=== PATIENT | male | born 1950 | race Caucasian/White ===

== ENCOUNTER → 2018-12-16 15:43 | Outpatient (CLI) | payer MEDICARE | END | disposition home or self-care (01) | LOC: D.RAD 15:43 | DX: R06.02 Shortness of breath (principal) ==

== ENCOUNTER → 2021-03-24 08:06 | Outpatient (CLI) | payer MEDICARE ==
[2020-12-08 20:48] VITALS: BMI 26.5
[~2021-03-24 08:06] MED LIST: STOMACH MEDICATION; ULTRAM50 MG PO
== END | disposition home or self-care (01) ==
LOC: D.CT 08:06
PROVIDERS: ATTEND Thoracic Surgery (Cardiothoracic Vascular Surgery)
DX: C34.90 Malignant neoplasm of unspecified part of unspecified bronchus or lung (principal)

== ENCOUNTER → 2021-03-29 09:40 | Outpatient (CLI) | payer MEDICARE ==
[2020-12-08 20:48] VITALS: BMI 26.5
== END | disposition home or self-care (01) ==
LOC: D.LAB 09:40
PROVIDERS: ATTEND Thoracic Surgery (Cardiothoracic Vascular Surgery)
DX: C34.90 Malignant neoplasm of unspecified part of unspecified bronchus or lung (principal); Z11.52 Encounter for screening for COVID-19

== ENCOUNTER → 2021-03-30 15:18 | Outpatient (CLI) | payer MEDICARE ==
[2020-12-08 20:48] VITALS: BMI 26.5
[2021-03-30 16:07] LABS: SARS-CoV-2 ANTIGEN NEGATIVE- SARS-COV-2 (NEGATIVE)
== END | disposition home or self-care (01) ==
LOC: D.LAB 15:18
PROVIDERS: ATTEND Thoracic Surgery (Cardiothoracic Vascular Surgery)
DX: C34.90 Malignant neoplasm of unspecified part of unspecified bronchus or lung (principal); Z11.52 Encounter for screening for COVID-19

== ENCOUNTER → 2021-03-30 15:23 | Outpatient (CLI) | payer MEDICARE ==
[2020-12-08 20:48] VITALS: BMI 26.5
== END | disposition home or self-care (01) ==
LOC: D.RT 15:00
PROVIDERS: ATTEND Thoracic Surgery (Cardiothoracic Vascular Surgery)
DX: I20.9 Angina pectoris, unspecified (principal)

== ENCOUNTER → 2021-04-01 08:06 | Outpatient (CLI) | payer MEDICARE ==
[2020-12-08 20:48] VITALS: BMI 26.5
--- NOTE | 2021-04-04 08:00 | ST ---
PATIENT:IGGY BLAKE MEDICAL RECORD: [id number] SEX: M LOCATION:[facility] ORDER #: ADMISSION DATE: 04/01/21 AGE OF PATIENT: 71 REFERRING PHYSICIAN: INTERPRETING PHYSICIAN: ANGELIQUE ROBIN MD DATE OF SERVICE: 04/01/2021 Gated: Normal. Normal wall motion. Normal wall thickening. Calculated EF 61%. SPECT imaging: SPECT imaging was performed. FINDINGS: Short axis view: Shows a reversible defect along the mid inferior wall down to the inferior apex, this is confirmed on horizontal axis with reversible defect from the mid inferior wall down to the inferior apex. Vertical axis: Vertical axis shows apical defect. FINAL IMPRESSION: 1. Normal gated, normal wall motion, EF 61%. 2. Abnormal SPECT imaging with reversible defect seen in multiple views. FINAL IMPRESSION: This gentleman with multiple risk factors, ongoing ischemic symptomatology, scan is suspicious for underlying coronary artery disease and ongoing ischemia, would consider diagnostic angiography if clinically indicated. TRANSINT:[id number] Voice Confirmation ID: [id number] DOCUMENT ID: [id number] ANGELIQUE ROBIN MD at 0800 CC: [id number] DICTATION DATE: 04/02/21 0953 SHOP HELPER: 04/03/21 0406 DEP CLI 04/01/21 [place] [id number] [place] [address]
--- NOTE | 2021-04-04 08:00 | EC ---
PATIENT:IGGY BLAKE DATE OF SERVICE: 04/01/21 SEX: M MEDICAL RECORD: [id number] DATE OF : [birth year] LOCATION:[facility] AGE OF PATIENT: 71 ADMISSION DATE: 04/01/21 REFERRING PHYSICIAN: INTERPRETING PHYSICIAN: ANGELIQUE ROBIN MD ECHOCARDIOGRAM REPORT ECHO CHARGES 4 ECHO COMPLETE Date: 04/01/21 CLINICAL DIAGNOSIS: ANGINA/HEART MURMUR ECHOCARDIOGRAPHIC MEASUREMENTS (adult normal given) AC root (d.<3.7cm) 3.9 cm LV Septum d (<1.2 cm> 1.5 cm Valve Excursion 1.5 cm LV Septum (systole) 1.8 cm Left Atria (s.<4.0cm> 3.3 cm LVPW d(<1.2cm) 1.5 cm RV (d.<2.3cm) 3.5 cm LVPW (sytole) 1.8 cm LV diastole(<5.6CM) 4.8 cm MV E-F(>70mm/sec) cm LV systole 2.8 cm LVOT Diameter 1.9 cm MV exc.(>10mm) 1.7 cm Est.ejection fraction (50-75%) % DOPPLER: LVIT cm/sec A 83.0 cm/sec E 67.0 cm/sec LA cm/sec RVSP 20 mmHg LVOT 100 cm/sec AOP1/2T m/s Asc. Ao 206 cm/sec RVOT 75 cm/sec RA cm/sec PA 86 cm/sec AV Gradient Peak 16.91mmHg AV Mean 8.88 mmHg AV Area 1.4 cm MV Gradient Peak 2.66 mmHg MV Mean 0.91 mmHg MV Area cm COMMENTS: Telecom Sales Consultant: 2 IESHA RODRIGUEZ Advertising Writer: 3 Dr. Hoff TAPE# PACS Pericardial Effusion N DATE OF SERVICE: Adequate 2D, color-flow imaging, spectral Doppler, and M-Mode FINDINGS: LVH is present. LV internal dimensions are normal. Wall motion is normal. EF is greater than or equal to 55%. Aortic valve is sclerotic with minimal restriction of leaflet motion. Peak gradient of 60 mmHg, putting this in a very mild range. There is trace AI by color flow imaging as well. Left atrium is normal at 3.3 cm. Mitral valve shows no prolapse. Trace MR. Right side is grossly normal. Trace TR. ECHOCARDIOGRAM REPORT [id number] IGGY BLAKE TRANSINT:[id number] Voice Confirmation ID: [id number] DOCUMENT ID: [id number] ANGELIQUE ROBIN MD at 0800 CC: [id number] DICTATION DATE: 04/02/21 1000 MAINTENANCE SUPERVISOR ELECTRICAL: 04/02/21 1322 DEP CLI 04/01/21 [place] [id number] [place] [id number]
== END | disposition home or self-care (01) ==
LOC: D.HCCECHO 08:06
PROVIDERS: ATTEND Internal Medicine Interventional Cardiology
DX: I20.9 Angina pectoris, unspecified (principal)

== ENCOUNTER 2021-04-14 11:13 | Inpatient (IN) | payer MEDICARE ==
[2021-04-14] VITALS (8 sets, daily range): BP systolic 85–133; BP diastolic 30–69; BMI 29.6; BMI 29.2
[~2021-04-14] VITALS: Ht 172.7 cm; Wt 83.1 kg
--- NOTE | ~2021-04-14 | HEMODYNAMI ---
PATIENT:IGGY BLAKE MEDICAL RECORD: [id number] : 46 [address] [id number] ADMISSION DATE: 04/14/21 Generatedon:19:14 Patient name: IGGY BLAKE Patient #: [id number] SSN: [id number] : 1950 Date of study: 04/14/2021 Page: Of Hemodynamic Procedure Report Patient Data Patient Demographics Procedure consent was obtained First Name: IGGY Gender: Male Last Name: HAYDEN : 1950 [facility] Initial: L Age: 71 year(s) Patient #: [id number] Race: SSN: [id number] Past Medical History Allergies: No known allergies Admission Admission Data Admission Date: 04/14/2021 Admission Time: 0:00 Arrival Date: 04/14/2021 Arrival Time: 0:00 Admit Source: Other Insurance Payor: Medicare Room #: D.CV04 [facility] #: [id number] Height (in.): 71 BSA: 2.1 (m2) Height (cm.): 180.34 BMI: 27.62 (kg/m2) Weight (lbs.): 198 Weight (kg.): 89.81 Lab Results Lab Result Date: 04/14/2021 Lab Result Time: 0:00 Biochemistry Name Units Result Min Max BUN mg/dl 18 --(---*)-- 7 18 Creatinine mg/dl 1.2 --(---*)-- 0.6 1.3 eGFR ml/min 63 *-(----)-- 90 120 NONAFRICAN CBC Name Units Result Min Max Hematocrit % 34.2 *-(----)-- 42 54 Hemoglobin g/dl 11.7 *-(----)-- 13.5 17.5 Procedure Procedure Types Cath Procedure Diagnostic Procedure [facility] w/Coronaries FFR/IVUS FFR Initial FFR Additional Sedation Charges Moderate Sedation 10-24 minutes PCI Procedure Hemochron ACT Test Procedure Description Procedure Date Procedure Date: 04/14/2021 Procedure Start Time: 13:15 Procedure End Time: 13:34 Procedure Staff Name Function Rafaela Wells RT Scrub Anna Fong RN Nurse Rory James MD Performing Physician Alice Chand RT Monitor Gilbert Lea RN Nurse Nusrat Mccarty RT Monitor Procedure Data Cath Procedure Fluoroscopy Diagnostic fluoroscopy Total fluoroscopy Time: 3.8 time: 3.8 min min Diagnostic fluoroscopy Total fluoroscopy dose: 600 dose: 600 mGy mGy Contrast Material Contrast Material Type Amount (ml) Isovue 370 75 Entry Location Entry Primary Successful Side Size Upsize Upsize Entry Closure Succes sful Closure Location (Fr) 1 (Fr) 2 (Fr) Remarks Device Remarks Femoral Right 5 Fr 6 Fr Exoseal artery Short Estimated blood loss: 10 ml Diagnostic catheters Device Type Used For End Catheter Placement MULTIPACK JL 4.0 5Fr Procedure catheter MULTIPACK 3DRC 5Fr Procedure catheter MULTIPACK Pigtail 5 Fr Procedure catheter Procedure Complications No complications Procedure Medications Medication Administration Route Dosage Oxygen etCO2 Nasal cannula 2 l/min Lidocaine 2% added to field 20 Heparin Flush Bag added to field 2 bags (1000units/500ml NS) 0.9% NaCl I.V. 100 ml/hr Versed I.V. 1 mg Fentanyl I.V. 50 mcg Versed I.V. 0.5 mg Fentanyl I.V. 25 mcg Heparin Bolus I.V. 2000 units Hemodynamics Rest BSA: 2.1 (m2) HGB: 11.7 (g/dl) O2 Consumption: Estimated: 224.42 (ml/min) O2 Con sumption indexed: Estimated:106.87 (ml/min/m) Heart Rate: 48 (bpm) Pressure Samples Time Site Value (mmHg) Purpose Heart Use Rate(bpm) 13:20 LV 161/69,4 Snapshot 86 Gradients Valve Time Site Site Mean SEP/DFP Peak To Heart Use 1 2 (mmHg) (sec/min) Peak Rate (mmHg) (bpm) Aortic 13:21 LV AO 70 Snapshots Pre Cath Intra NCS Post Cath Vital Signs Time Heart Resp SPO2 etCO2 NIBP Rhythm Pain Sedation Rate (ipm) (%) (mmHg) (mmHg) Status Level (bpm) 13:06:36 49 15 99 8.2 105/66(77) NSR 0 (11) 10(A) , No pain 13:10:40 50 13 98 35.2 100/63(81) NSR 0 (11) 10(A) , No pain 13:14:43 51 14 98 29.2 118/62(83) NSR 0 (11) 10(A) , No pain 13:18:53 63 12 96 0 103/61(80) NSR 0 (11) 10(A) , No pain 13:22:57 60 12 96 33 105/63(75) NSR 0 (11) 9(A) , No pain 13:27:03 57 10 98 23.2 110/60(74) NSR 0 (11) 10(A) , No pain 13:31:07 62 13 97 28.5 110/71(94) NSR 0 (11) 10(A) , No pain Medications Time Medication Route Dose Verified Delivered Reason Notes Effectiveness by by 13:00:33 Oxygen etCO2 2 Rory Gilbert used for Nasal l/min St Orlin Lea RN procedure cannula 13:00:41 Lidocaine 2% added 20ml Rory Valadez for local to vial [facility] anesthetic field MD HARRIS 13:00:49 Heparin Flush added 2 Rory Rory used for Bag to bags [facility] procedure (1000units/500ml field MD HARRIS NS) 13:00:58 0.9% NaCl I.V. 100 Rory Moorey Per physician ml/hr St Orlin Lea RN, MD 13:15:05 Versed I.V. 1 mg Rory Hunt for sedation St Orlin Lea RN, MD 13:15:13 Fentanyl I.V. 50 Rory Moorey for sedation mcg St Orlni Lea RN, MD 13:20:19 Versed I.V. 0.5 Rory Moorey for sedation mg St Orlin Lea RN, MD 13:20:24 Fentanyl I.V. 25 Rory Moorey for sedation mcg St Orlin Lea RN, MD 13:22:44 Heparin Bolus I.V. 2000 Rory Hunt for units St Orlin lechuga MD Procedure Log Time Note 12:27:19 Informed consent obtained and on chart 12:27:40 Arrival Date: 04/14/2021 12:00:00 AM 12:27:41 Admission Date : 04/14/2021 12:00:00 AM 12:27:42 Admit Source: Other 12:27:55 Insurance Payor : Medicare 12:29:42 Patient Height : 71 inches 12:29:45 Patient Weight : 198 lbs 12:31:50 ACC Patient presents with Stable Angina CCS Anginal Class 2--Slight limitation of ordinary activity. 12:31:52 Procedure Status Elective Heart Cath (OP). 12::54 Time tracking: Regular hours (M-F 7:00 - 5:00) 12:31:59 Plan of Care:Hemodynamics will remain stable., Cardiac rhythm will remain stable., Comfort level will be maintained., Respiratory function will remain adequate., Patient/ family verbilizes understanding of procedure., Procedure tolerated without complication., Recovers from procedure without complications.. 12:32:07 H&P Date Dictated: 03/22/2021 Within 30 days and on chart.. 12:32:10 Family in waiting room. 12:32:12 Patient NPO since Midnight. 12:32:19 Patient allergic to No known allergies 12:32:28 Lab results pending. 12:33:33 Stress Test: yes; abnormal INFERIOR 12:33:36 Sharps counted by scrub and verified by R.N. 12:33:36 Alarms reviewed by R. N. 12:46:33 Anna Fong RN sent for patient. Start room use. 12:53:47 Lab results completed and on chart. 12:54:15 Lab Result : Hemoglobin 11.7 g/dl 12:54:15 Lab Result : Hematocrit 34.2 % 12:54:15 Lab Result : eGFR NONAFRICAN 63 ml/min 12:54:15 Lab Result : BUN 18 mg/dl 12:54:15 Lab Result : Creatinine 1.2 mg/dl 12:54:20 Risk of Mortality: 0.2 12:54:23 Risk of blood transfusion: 0.1 12:54:26 Risk of VIKTORIYA: 2.1 12:54:35 Patient received from Pre/Post Procedure Room to CCL 2 Alert and oriented. Tansferred to table in Supine position. 12:54:36 Warm blankets applied, and marion hugger turned on for patient comfort. 12:54:37 ECG and BP/O2 sat monitors applied to patient. 12:54:37 Correct patient and procedure confirmed by team. 12:54:38 Full Disclosure recording started 12:54:42 Pre-op teaching completed and patient verbalized understanding. 12:54:42 Pre-procedure instructions explained to patient. 12:54:44 Is the patient allergic to Iodine/contrast media? No. 12:54:46 Was the patient premedicated? Yes 12:54:48 Is patient on blood thinner?No 12:54:49 Patient diabetic? No. 12:54:51 If diabetic: On Metformin? No 12:54:55 ----Pre-sedation anethsthesia assessment.---- 12:54:58 Previous problem with sedation/anesthesia? No ? 12:54:59 Snore? Yes 13:00:33 Oxygen 2 l/min etCO2 Nasal cannula was administered by Gilbert Lea RN; used for procedure; Verbal order read back and verified. 13:00:41 Lidocaine 2% 20ml vial added to field was administered by Rory James MD; for local anesthetic; Verbal order read back and verified. 13:00:49 Heparin Flush Bag (1000units/500ml NS) 2 bags added to field was administered by Royr Jmaes MD; used for procedure; Verbal order read back and verified. 13:00:58 0.9% NaCl 100 ml/hr I.V. was administered by Gilbert Lea RN; Per physician; Verbal order read back and verified. 13:04:25 Sleep apnea? No 13:04:26 Deviated septum? No 13:04:32 Opens mouth fully? Yes 13:04:34 Sticks out tongue? Yes 13:04:42 Airway obstruction? Yes LUNG CANCER 13:05:06 Dentures? No ? 13:05:09 Pre procedure: right dorsailis pedis pulse 1+ Palpable, but thready & weak; easily obliterated 13:05:12 Modified Raj's test Ulnar < 7 seconds 13:05:15 Patient pain scale 0/10 ?. 13:05:26 IV patent on arrival in left antecubital with 0.9% NaCl at [facility]. 13:05:31 Vital chart was started 13:05:33 Baseline sample Acquired. 13:05:39 Rhythm: sinus bradycardia 13:05:46 Use device set Femoral Dx 13:05:47 ACIST Syringe (09352) opened to sterile field. 13:05:48 Bag Decanter () opened to sterile field. 13:05:49 Medline Cath Pack ([id number]) opened to sterile field. 13:05:50 ACIST Manifold (94256) opened to sterile field. 13:05:50 ACIST Hand Control (86169) opened to sterile field. 13:05:51 DIAGNOSTIC Multipack 5Fr catheter set (CC1108) opened to sterile field. 13:05:52 SHEATH 5FR [place] (LGZ442) opened to sterile field. 13:05:53 EMERALD Guide Wire (809-793) opened to sterile field. 13:05:54 Tegaderm 4 x 4 (1626W) opened to sterile field. 13:06:13 Right groin area was prepped with chlora-prep and draped in sterile fashion 13:07:16 2) 60-89 Mildly reduced kidney function, and other findings (as for stage 1) point to kidney disease. 13:07:19 Maximum allowable contrast dose (3.7 X eGFR X 0.75)175 ml. 13:13:31 --------ALL STOP TIME OUT------ 13:13:32 Final Timeout: patient, procedure, and site verified with staff and physician. All members of the team are in agreement. 13:13:34 Right groin site verified by team. 13:13:37 Fire Safety Assessment: A--An alcohol-based skin anteseptic being used preoperatively., C--Open oxygen or nitrous oxide is being used., D--An ESU, laser, or fiber-optic light is being used. 13:13:41 Physical assessment completed. ASA score P 2 - A patient with mild systemic disease as per Rory James MD. 13:13:45 Sedation plan: IV Moderate Sedation Medication:Versed, Fentanyl 13:14:45 Procedure started. 13:15:05 Versed 1 mg I.V. was administered by Gilbert Lea RN; for sedation; Verbal order read back and verified. 13:15:09 Local anesthetic to right femoral artery with Lidocaine 2% by Rory James MD.INITIAL ACCESS ONLY 13:15:13 Fentanyl 50 mcg I.V. was administered by Gilbert Lea RN; for sedation; Verbal order read back and verified. 13:15:49 A 5 Fr sheath was inserted into the Right Femoral artery 13:16:52 A MULTIPACK JL 4.0 5Fr catheter was advanced over the wire and used for Procedure. 13:16:55 LCA angiography performed. 13:16:57 Injector settings: Ml/sec: 3, Volume: 6, 13:17:47 Catheter removed. 13:17:57 A MULTIPACK 3DRC 5Fr catheter was advanced over the wire and used for Procedure. 13:18:26 RCA angiography performed. 13:18:29 Injector settings: Ml/sec: 3, Volume: 6, 13:19:18 Catheter exchanged over wire. 13:19:22 A MULTIPACK Pigtail 5 Fr catheter was advanced over the wire and used for Procedure. 13:19:42 LV gram done using ASTUDILLO 13:20:19 Versed 0.5 mg I.V. was administered by Gilbert Lea RN; for sedation; Verbal order read back and verified. 13:20:24 Fentanyl 25 mcg I.V. was administered by Gilbert Lea RN; for sedation; Verbal order read back and verified. 13:20:39 Zero performed for pressure channel P1 13:20:56 LV hemodynamics recorded. 13:20:59 Injector settings: Ml/sec: 5, Volume: 15, 13:21:05 EF : 55 % 13:21:10 Catheter removed. 13:21:12 Proceeding to intervention. 13:21:17 Use device set SHARDA PCI 13:21:18 SHEATH 6FR [place] (TMJ369) opened to sterile field. 13:21:21 INFLATOR Merit BasixCompak (KO4642) opened to sterile field. 13:21:30 [place] OmniWire (14297) opened to sterile field. 13:21:49 Sheath upsized to a 6 Fr Short. 13:22:44 Heparin Bolus 2000 units I.V. was administered by Gilbert Lea RN; for anticoagulation; Verbal order read back and verified. 13:22:54 GUIDE 6FR XBLAD 3.5 catheter ([id number]) opened to sterile field. 13:23:02 6 Fr XBLAD 3.5 guide catheter was inserted over the wire 13:24:43 Pressure wire advanced. 13:26:21 Wire advanced across lesion. 13:26:59 Circ lesion measured at 1.03 with IFR 13:27:09 Wire redirected to LAD. 13:27:46 Wire advanced across lesion. 13:29:17 LAD lesion measured at .96 with IFR 13:29:28 Guide catheter removed. 13:29:28 Wire removed. 13:30:06 EXOSEAL 6Fr (EX600) opened to sterile field. 13:30:16 Sheath removed intact; hemostasis achieved with Exoseal to the Right Femoral artery. 13:30:18 Procedure ended.(Physican Out) 13:30:25 Fluoroscopy time 03.80 minutes. 13:30:29 Fluoroscopy dose: 600 mGy 13:30:29 Flurop Dose total: 600 13:30:37 Dose Area Product 22616 mGy/cm. 13:30:44 Contrast amount:Isovue 370 75ml. 13:30:47 Maximum allowable dose exceeded? No. 13:30:48 Sharps counted by scrub and verified by R.N. 13:30:58 Post-op/insertion site Right Femoral artery dressed using a 4 x 4 and Tegaderm. 13:31:03 Post right femoral artery:stable, soft, clean and dry 13:31:04 Post Procedure Pulses reassessed and unchanged 13:31:06 Post procedure: right dorsailis pedis pulse 2+ Normal; easily identifiable; not easily obliterated. 13:31:09 Post-procedure physical assessment completed. ASA score P 2 - A patient with mild systemic disease as per Rory James MD. 13:31:14 Post procedure rhythm: sinus rhythm 13:31:17 Estimated blood loss: 10 ml 13:31:19 Patient needs reinforcement of post procedure teaching. 13:31:19 Post procedure instruction explained to patient.Patient verbalizes understanding. 13:31:31 Procedure Complication : No complications 13:31:35 Vital chart was stopped 13:31:39 [facility] Findings: mild to moderate CAD (<70%) 13:31:49 Operative report dictated upon procedure completion. 13:31:50 See physician's report for complete and final results. 13:31:52 Report given to Pre/Post Procedure Room. 13:31:55 Patient transfered to Pre/Post Procedure Room with Stretcher. 13:33:58 Procedure type changed to Cath procedure, Diagnostic procedure, LHC, [facility] w/Coronaries, FFR/IVUS, FFR Initial, FFR Additional, Sedation Charges, Moderate Sedation 10-24 minutes, PCI procedure, Hemochron ACT Test 13:34:40 ACT drawn and resulted at 162 seconds. (normal therapeutic range 180-240 seconds). 13:34:50 Full Disclosure recording stopped 13:34:50 Procedure ended. 13:34:53 End room use (Document Last) 13:35:03 End room use (Document Last) 9:13:40 Due to technical difficulties on date of procedure I had to have documentation resigned by Dr. Hoff. Nusrat Mccarty RT(R) Device Usage Item Name Manufacture Quantity Catalog Hospital Part Current Minimal L ot# / Number Charge Number Stock Stock Serial# Code ACIST Acist 1 20761 214547 546339 768632 20 Syringe Medical (51393) Systems Inc Bag Microtek 1 048453 50544 430319 5 Decanter Medical Inc. () Medline Medline 1 [id number] 690210 28691 041014 5 Cath Pack ([id number]) ACIST Hand Acist 1 75686 388553 187923 665646 5 Control Medical (72408) Systems Inc ACIST Acist 1 93615 444436 841649 273342 5 Manifold Medical (72077) Systems Inc DIAGNOSTIC Cardinal 1 GN7729 663194 17171 174689 30 Multipack Health 5Fr catheter set (YW9395) SHEATH 5FR Terumo 1 HRR217 545527 258652 098931 5 [place] (NBZ904) EMERALD Cardinal 1 502-455 077042 223257 124210 5 Guide Wire Health (502-455) Tegaderm 4 3M 1 1626W 385143 955595 671793 5 x 4 (1626W) MULTIPACK Cardinal 1 491334 5 JL 4.0 5Fr Health catheter MULTIPACK Cardinal 1 350630 5 3DRC 5Fr Health catheter MULTIPACK Cardinal 1 809326 5 Pigtail 5 Health Fr catheter SHEATH 6FR Terumo 1 OQZ454 866434 401700 401879 40 [place] (DNC487) INFLATOR Merit 1 WS7448 613752 462885 899973 15 Sanguine Medical BasixCompak (NU3839) [place] 1 5762331 188177 35324 9930 5 OmniWire (66032) GUIDE 6FR Cardinal 1 [id number] 153114 043920 888581 10 XBLAD 3.5 Health catheter (02942476) EXOSEAL 6Fr Cardinal 1 EX600 007112 589103 106884 10 (EX600) Health Signature Audit [place] Stage Time Signature Unsigned Intra-Procedure 04/14/2021 Alice Chand 1:35:03 PM RT(R) Intra-Procedure 04/14/2021 Anna Fong RN 1:40:16 PM Intra-Procedure 04/14/2021 Rory James MD 1:40:31 PM Orlin HARRIS 04/19/2021 9:11:57 AM Intra-Procedure 04/19/2021 Rory Arriaga 9:14:23 AM Orlin HARRIS Signatures Nurse : Anna Fong RN Signature : Date : Time : Performing Physician : Signature : Rory James MD Date : Time : Monitor : Alice Young Signature : RT Date : Time : Nurse : Gilbert Lea RN Signature : Date : Time : Monitor : Nusrat Signature : Counts RT Date : Time : [facility] [address] [place] [address]
[2021-04-14 12:27] LABS: HEMATOCRIT 34.2 % (42.0-54.0); HEMOGLOBIN 11.7 g/dL (13.5-17.5); MCH 35.5 pg (26.0-34.0); MCHC 34.1 g/dL (31.0-37.0); MCV 104.1 fL (80.0-100.0); MEAN PLATELET VOLUME 7.7 fL (7.4-10.4); PLATELET COUNT 246 10x3/uL (130-400); RBC 3.29 10x6/uL (4.20-6.10); WBC 5.9 10x3/uL (4.8-10.8)
[2021-04-14] MEDS ORDERED: MYSOLINE 50 MG50 MG PO (12:34)
[2021-04-14] MEDS ORDERED: TIMOPTIC 0.25% O5 M1 EACH EYE (12:36)
[2021-04-14] MEDS ORDERED: XALATAN 0.0052.5 ML EACH EYE (12:37)
[2021-04-14] MEDS ORDERED: HYDROCODON-ACE1 EAC7 PO (12:37)
[2021-04-14] MEDS ORDERED: PRAVASTATIN SOD10 MG PO (12:38)
[2021-04-14] MEDS ORDERED: COMBIVENT RESPIM4 GM INH (12:39)
[2021-04-14] MEDS ORDERED: PEPCID AC20 MG PO (12:40)
[2021-04-14] MEDS ORDERED: ZOLOFT50 MG PO (12:40)
[2021-04-14 12:41] LABS: ANION GAP 15.4 mmol/L (8-16); CALCIUM 9.2 mg/dL (8.5-10.1); CARBON DIOXIDE 25.4 mmol/L (21.0-32.0); CHOL - HDL RATIO 4.8 ratio (2.3-4.9); CREATININE - SERUM 1.2 mg/dL (0.6-1.3); LDL-HDL RATIO 3.2 ratio (1.5-3.5); POTASSIUM - SERUM 4.8 mmol/L (3.5-5.1)
[2021-04-14 12:57] LABS: EOSINOPHILS 2 % (0-7); LYMPHOCYTES 66 % (15-50); NEUTROPHILS 32 % (40-80); PLATELET ESTIMATE NORMAL
--- NOTE | 2021-04-14 13:45 | NUR ---
PT ARRIVES TO ROOM 8 VIA STRETCHER S/P HEART CATH. SEE BENDER MACHINE OPERATOR, PT PLACED ON MONITORS, DR ROBIN TO ROOM TO SPEAK WITH SPOUSE PRIOR TO PT ARRIVAL, PT DENIES PAIN OR NEEDS, CALL LIGHT WITH IN REACH
--- NOTE | 2021-04-14 14:00 | NUR ---
PT SUPINE , AAOX3, VISITNG WITH SPOUSE AT BEDSIDE, VSS, SB WITH NO ECTOPY, RIGHT GROIN SOFT WITHOUT OOZING OR BLEEDING , EXTREMITY PINK AND WARM AND PEDAL PULSE PALPABLE, DENIES PAIN OR NEEDS, IV INFUSING PER ORDERS, CALL LIGHT WITHIN REACH
--- NOTE | 2021-04-14 14:15 | NUR ---
RIGHT GROIN STABLE NO OOZING OR BLEEDING, NO PALPABLE HEMATOMA, PEDAL PULSE PALPABLE, VSS, SB, DENIES PAIN OR NEEDS, CALL LIGHT WITHIN REACH
--- NOTE | 2021-04-14 14:30 | NUR ---
RESTING QUIETLY , VSS, SB, RIGHT GROIN STABLE, NO OOZING OR BLEEDING NO PALPABLE HEMATOMA, RIGHT LOWER EXTREMITY PINK AND WARM AND PEDAL PULSE PALPABLE, DENIES PAIN AND NEEDS , CALL LIGHT WITHIN REACH
--- NOTE | 2021-04-14 15:00 | NUR ---
RESTING QUIETLY, VSS, SB, RIGHT GROIN SOFT WITHOUT OOZING OR BLEEDING, NO PALPABLE HEMATOMA, PEDAL PULSE PALPABLE, IV INFUSING PER ORDERS, DENIES PAIN OR NEEDS AT THIS TIME, CALL LIGHT WITH IN REACH.
--- NOTE | 2021-04-14 15:30 | NUR ---
ANA MARÍA WITH DR WILLINGHAM AT BEDSIDE TO SPEAK WITH PT AND SPOUSE
--- NOTE | 2021-04-14 15:45 | NUR ---
PT SEMI FOWLERS POSITION SANDWICH BOX AND COFFEE GIVEN PER PT REQUEST, VSS, SB PER MONITOR, SATS 98% RA, RIGHT GROIN SOFT WITH OOZING OR BLEEDING, NO PALPABLE HEMATOMA, EXTEMITY PINK AND WARM AND PEDAL PULSE PALPABLE, PIV LEFT HAND PATENT NS INFUSING PER ORDER, PT DENIES NEEDS OR PAIN, CALL LIGHT WITHIN REACH
--- NOTE | 2021-04-14 16:15 | NUR ---
VSS, SB, SATS 99% RA, RIGHT GROIN SOFT WITHOUT BLEEDING OR OOZING, NO PALPABLE HEMATOMA, PEDAL PULSE PALPABLE, CAP REFILL WNL, IV PATENT, DENIES PAIN OR NEEDS, CALL LIGHT WITHIN REACH, PT UPDATED ON PLAN OF CARE AN ANTICIPATED TRANSFER TO CVICU, PT VERBALIZED UNDERSTANDING
--- NOTE | 2021-04-14 16:57 | NUR ---
REPORT TO SHAHIDA KELLOGG PT TRANSFERED TO CVICU ROOM VIA WHEELCHAIR
--- NOTE | 2021-04-14 17:06 | NUR ---
PT RECIEVED TO ROOM ALERT AND ORIENTED, HR SINUS AIDEN 50S, CATH SITE CDI, DENIES ALL NEEDS
[2021-04-14 17:31] LABS: INR 1.17 (0.85-1.17); PROTIME 13.8 SECONDS (11.6-15.0)
[2021-04-14 21:42] LABS: BILIRUBIN NEGATIVE (NEGATIVE); KETONE NEGATIVE (NEGATIVE); NITRITE NEGATIVE (NEGATIVE); UROBILINOGEN NORMAL mg/dL (< 2)
[2021-04-15] VITALS (46 sets, daily range): BP systolic 84–129; BP diastolic 32–90; BMI 29.2
--- NOTE | 2021-04-15 08:22 | NUR ---
PT TO OR. CONCENTS ON CHART. PREOP MEDS GIVEN ORDERED. TO SURGERY WAITING.
--- NOTE | 2021-04-15 10:42 | NUR ---
EPIDURAL PLACE IN HOLDING AREA, CVL AND ARTERIAL LINE PLACED IN ROOM, DR WILLINGHAM PRESENT AT 0900 FOR BRONCHOSCOPY, JACQUELINE.
--- NOTE | 2021-04-15 14:07 | NUR ---
1356-REC'D PT BACK TO CVICU FROM OR. ZEROED ART LINE. CARITO INFUSING UPON ARRIVAL 0.4. TITRATED CARITO OFF ART LINE BP 130 SYSTOLIC. VSS. IN WAITING ROOM. VENKAT SPOKE WITH HER. CXR ORDERED.
--- NOTE | 2021-04-15 15:10 | NUR ---
NOTICABLE INCREASE IN AIR LEAK TO CT. NOTIFIED DR WILLINGHAM. DR WILLINGHAM AT BS. NO NEW ORDERS.
--- NOTE | 2021-04-15 15:10 | NUR ---
REPORTED 90CC OUT OF POSTERIOR CT.DR WILLINGHAM NOTIFIED. NO NEW ORDERS.
[2021-04-16] VITALS (91 sets, daily range): BP systolic 80–121; BP diastolic 38–67
[2021-04-16 05:34] LABS: HEMATOCRIT 27.8 % (42.0-54.0); HEMOGLOBIN 9.5 g/dL (13.5-17.5); MCH 35.7 pg (26.0-34.0); MEAN PLATELET VOLUME 7.8 fL (7.4-10.4); RBC 2.65 10x6/uL (4.20-6.10); RDW 18.5 % (11.5-14.5)
[2021-04-16 05:35] LABS: WBC 8.1 10x3/uL (4.8-10.8)
[2021-04-16 05:48] LABS: ALBUMIN 2.8 g/dL (3.4-5.0); ALKALINE PHOSPHATASE 60 U/L (30-120); BILIRUBIN - TOTAL 0.38 mg/dL (0.2-1.3); CALC OSMOLALITY 280 mosm/kg (275-300); CALCIUM 7.8 mg/dL (8.5-10.1); CHLORIDE - SERUM 106 mmol/L (98-107); GLUCOSE 132 mg/dL (74-106); PROTEIN - SERUM 5.6 g/dL (6.4-8.2); SODIUM 139 mmol/L (136-145); UREA NITROGEN 15 mg/dL (7-18); eGFR NON AFRICAN AMERICAN 78 mL/min (90-120)
[2021-04-16 05:49] LABS: ALT (SGPT) 26 U/L (10-68); POTASSIUM - SERUM 3.9 mmol/L (3.5-5.1)
--- NOTE | 2021-04-16 10:11 | NUR ---
DR IVEY HERE ON ROUNDS AND DR CHAU HERE THIS AM. PHONED [address]ESTH[address] BOSS TO REPORT EPIDURAL AMOUNT.
--- NOTE | 2021-04-16 11:44 | OP ---
PATIENT NAME: IGGY BLAKE MEDICAL RECORD: [id number] :46 LOCATION:[facility].CV04 ADMISSION DATE:04/14/21 SURGEON: WILMER WILLINGHAM MD DATE OF OPERATION: 04/15/2021 SURGEON: Wilmer Willingham MD PROCEDURES PERFORMED: 1. Bronchoscopy. 2. Right thoracotomy with right lower lobe lobectomy. 3. Mediastinal lymph node dissection. PREOPERATIVE DIAGNOSIS: Squamous cell carcinoma, right lower lobe. POSTOPERATIVE DIAGNOSIS: Squamous cell carcinoma, right lower lobe, T2N0M0. ANESTHESIA: Double lumen general endotracheal anesthesia and epidural. BLOOD LOSS: 100 mL. SPECIMENS: 1. Subcarinal lymph node for frozen, negative. 2. Lower lobectomy. 3. Lymph nodes from peribronchial, superior hilar, and interlobar. No sizable lymph nodes were noted in the inferior pulmonary ligament region. COMPLICATIONS: None. CONDITION: Stable. DISPOSITION: ICU. OPERATIVE FINDINGS: 1. Bronchoscopy with no endobronchial lesions seen, particularly in the lower lobe bronchus, just at the division of the bronchus intermedius where it appeared to be tumor on a previous scan from October 2020. There were no endobronchial or extra bronchial compression noted. 2. Dense adhesions consistent with previous tumor status post chemotherapy, small air leak after completion of the procedure. 3. Anthracotic lymph nodes. PROCEDURE INDICATIONS: Squamous cell carcinoma, status post chemotherapy. PROCEDURE IN DETAIL: The patient was brought to the operating suite. Single lumen endotracheal tube was placed and bronchoscopy was performed visualizing all mainstem lobar and segmental bronchi with no endobronchial lesions and a small amount of mucus. Double lumen endotracheal tube was placed. The position was confirmed with bronchoscopy. The patient was turned into the left lateral decubitus position with appropriate padding and bronchoscopy was again performed. The right lung was deflated. Right chest was sterilely prepped and draped. Right posterolateral thoracotomy incision was made and a small section of the 6th rib posteriorly was removed. Pleural cavity was entered. The hilum was freed. The pulmonary veins were identified. Large subcarinal lymph node was OPERATIVE REPORT [id number] IGGY BLAKE sent for frozen. After returned negative, the inferior vein was divided after visualizing the drainage of the middle lobe. The bronchus to the lower lobe was encircled and the pulmonary arterial branches were divided with the main trunk stapled, smaller branches divided between ligatures and suture ligatures and later oversewn with Prolene. The fissures were essentially incomplete and were divided with staple lines. Bronchus was stapled and divided. It was airtight under water. Thorough irrigation was undertaken and pledgeted sutures were used along the major fissure where it had been completed with a staple line. Progel was used. Chest tubes were placed anteriorly and posteriorly. The lung was reinflated and filled the space. Lymph nodes were removed for permanent specimen. The bronchus was then oversewn with interrupted Vicryls and a posteriorly based pleural patch was brought over the bronchial stump and again sutured. The cryotherapy was then performed to five nerve levels and the chest was closed with pericostal, two running muscle layers, subcutaneous and subcuticular. Anesthesia reversed. The patient to ICU, stable. TRANSINT:[id number] Voice Confirmation ID: [id number] DOCUMENT ID: [id number] WILMER WILLINGHAM MD at 1144 CC: HEMA PEREZ MD, SHARDAANGELIQUE NOWAK MD and STEPHANY CHAVEZ MD [id number] DICTATION DATE: 04/15/21 1457 DEMONSTRATOR ELECTRIC GAS APPLIANCES: 04/15/21 1821 ADM IN [facility] [address] [id number]
[2021-04-17] VITALS (84 sets, daily range): BP systolic 78–139; BP diastolic 34–78
[2021-04-17 05:29] LABS: HEMATOCRIT 26.9 % (42.0-54.0); HEMOGLOBIN 9.2 g/dL (13.5-17.5); MCHC 34.2 g/dL (31.0-37.0); MCV 105.3 fL (80.0-100.0); MEAN PLATELET VOLUME 7.6 fL (7.4-10.4); RBC 2.55 10x6/uL (4.20-6.10); RDW 17.7 % (11.5-14.5); WBC 8.5 10x3/uL (4.8-10.8)
[2021-04-17 06:06] LABS: ALBUMIN 2.7 g/dL (3.4-5.0); ALKALINE PHOSPHATASE 50 U/L (30-120); ALT (SGPT) 29 U/L (10-68); BILIRUBIN - TOTAL 0.35 mg/dL (0.2-1.3); CALC OSMOLALITY 281 mosm/kg (275-300); CARBON DIOXIDE 26.7 mmol/L (21.0-32.0); CHLORIDE - SERUM 108 mmol/L (98-107); GLUCOSE 120 mg/dL (74-106); POTASSIUM - SERUM 4.1 mmol/L (3.5-5.1); PROTEIN - SERUM 5.7 g/dL (6.4-8.2); SODIUM 141 mmol/L (136-145); UREA NITROGEN 13 mg/dL (7-18); eGFR NON AFRICAN AMERICAN 78 mL/min (90-120)
[2021-04-17] MEDS ORDERED: MYSOLINE 50 MG50 MG (07:20)
--- NOTE | 2021-04-17 13:27 | NUR ---
1305: L RADIAL ARTERIAL LINE DC'D. SITE DRESSED WITH 2X2 AND TEGADERM. CVP MONITORING DC'D.
[2021-04-18] VITALS (45 sets, daily range): BP systolic 88–131; BP diastolic 37–70
[2021-04-18 05:06] LABS: HEMATOCRIT 27.4 % (42.0-54.0); HEMOGLOBIN 9.5 g/dL (13.5-17.5); MCH 36.5 pg (26.0-34.0); MCHC 34.6 g/dL (31.0-37.0); MCV 105.6 fL (80.0-100.0); RBC 2.59 10x6/uL (4.20-6.10); RDW 17.5 % (11.5-14.5); WBC 7.3 10x3/uL (4.8-10.8)
[2021-04-18 05:19] LABS: ALBUMIN 2.6 g/dL (3.4-5.0); ALKALINE PHOSPHATASE 48 U/L (30-120); ALT (SGPT) 32 U/L (10-68); BILIRUBIN - TOTAL 0.31 mg/dL (0.2-1.3); CALC OSMOLALITY 283 mosm/kg (275-300); CALCIUM 8.2 mg/dL (8.5-10.1); CHLORIDE - SERUM 107 mmol/L (98-107); GLUCOSE 108 mg/dL (74-106); POTASSIUM - SERUM 3.9 mmol/L (3.5-5.1); PROTEIN - SERUM 5.9 g/dL (6.4-8.2); SODIUM 142 mmol/L (136-145); UREA NITROGEN 13 mg/dL (7-18); eGFR NON AFRICAN AMERICAN 78 mL/min (90-120)
--- NOTE | 2021-04-18 09:26 | OP ---
PATIENT NAME: IGGY BLAKE MEDICAL RECORD: [id number] :46 LOCATION:[facility] ADMISSION DATE:04/14/21 SURGEON: ANGELIQUE ROBIN MD DATE OF OPERATION: 04/14/2021 PROCEDURE: Left heart catheterization, selective coronary angiography, IFR wire to the LAD, IFR wire to the circ, right femoral artery approach. CATHETERS: A 5-Albanian sheath, 5/4 left and right Mendez, 5/4 pig, second sheath for IFR wire. FINDINGS: Left ventriculography in 30-degree ASTUDILLO view; normal wall motion and normal systolic function. CORONARY ANATOMY: LEFT MAIN: Left main is free disease. LAD: Has a questionable stenosis in the mid portion; however, this is not flow restrictive via IFR wire. CIRCUMFLEX: Again, a questionable stenosis in the mid portion, but IFR again is greater than 0.9. RIGHT CORONARY ARTERY: Has minimal luminal irregularities. IMPRESSION: 1. No evidence of significant obstructive coronary disease including via IFR wire. 2. Left ventricular function remains normal. 3. No contraindication to surgery from a cardiovascular standpoint. TRANSINT:[id number] Voice Confirmation ID: [id number] DOCUMENT ID: [id number] ANGELIQUE ROBIN MD at 0926 CC: [id number] DICTATION DATE: 04/14/21 1334 FORK OPERATOR: 04/14/21 1421 ADM IN [facility] [address] [place] [address]
--- NOTE | 2021-04-18 11:18 | NUR ---
Nutrition Follow-up: POD 3. Pt sleeping soundly at time of visit this AM. Discussed with nursing and in IDT rounds. Not eating well. Diet: Regular PO intake: 0-25% yesterday Wt: 212# (04/18) Labs noted: Glu 108, Ca 8.2, Alb 2.6 Meds noted: Protonix -Encourage PO intake and honor food preferences. -+Ensure with meals. -Monitor wt. -RD follow-up: 04/20
[2021-04-19] VITALS (20 sets, daily range): BP systolic 85–118; BP diastolic 32–91
[2021-04-19 05:13] LABS: HEMATOCRIT 25.8 % (42.0-54.0); HEMOGLOBIN 9.1 g/dL (13.5-17.5); MCHC 35.4 g/dL (31.0-37.0); MCV 104.3 fL (80.0-100.0); MEAN PLATELET VOLUME 7.9 fL (7.4-10.4); RBC 2.47 10x6/uL (4.20-6.10); RDW 16.4 % (11.5-14.5); WBC 5.6 10x3/uL (4.8-10.8)
[2021-04-19 05:48] LABS: ALBUMIN 2.4 g/dL (3.4-5.0); ALKALINE PHOSPHATASE 47 U/L (30-120); ALT (SGPT) 32 U/L (10-68); BILIRUBIN - TOTAL 0.39 mg/dL (0.2-1.3); CALC OSMOLALITY 280 mosm/kg (275-300); CALCIUM 8.2 mg/dL (8.5-10.1); CARBON DIOXIDE 25.9 mmol/L (21.0-32.0); CHLORIDE - SERUM 104 mmol/L (98-107); CREATININE - SERUM 0.8 mg/dL (0.6-1.3); GLUCOSE 116 mg/dL (74-106); POTASSIUM - SERUM 3.7 mmol/L (3.5-5.1); PROTEIN - SERUM 5.6 g/dL (6.4-8.2); SODIUM 140 mmol/L (136-145); UREA NITROGEN 16 mg/dL (7-18); eGFR NON AFRICAN AMERICAN > 90 mL/min (90-120)
--- NOTE | 2021-04-19 11:42 | NUR ---
PT REFUSES BLOOD PRESSURE FROM 0730 TO 1030AM .
[2021-04-20] VITALS (21 sets, daily range): BP systolic 95–129; BP diastolic 32–86
[2021-04-20 03:35] LABS: HEMATOCRIT 25.9 % (42.0-54.0); MCH 36.2 pg (26.0-34.0); MCHC 34.6 g/dL (31.0-37.0); MCV 104.6 fL (80.0-100.0); MEAN PLATELET VOLUME 7.9 fL (7.4-10.4); RBC 2.48 10x6/uL (4.20-6.10)
[2021-04-20 03:38] LABS: WBC 7.4 10x3/uL (4.8-10.8)
[2021-04-20 04:23] LABS: ALBUMIN 2.5 g/dL (3.4-5.0); ALKALINE PHOSPHATASE 48 U/L (30-120); ALT (SGPT) 34 U/L (10-68); BILIRUBIN - TOTAL 0.38 mg/dL (0.2-1.3); CALC OSMOLALITY 281 mosm/kg (275-300); CARBON DIOXIDE 28.2 mmol/L (21.0-32.0); CHLORIDE - SERUM 103 mmol/L (98-107); CREATININE - SERUM 0.9 mg/dL (0.6-1.3); GLUCOSE 136 mg/dL (74-106); POTASSIUM - SERUM 3.5 mmol/L (3.5-5.1); PROTEIN - SERUM 5.6 g/dL (6.4-8.2); SODIUM 139 mmol/L (136-145); UREA NITROGEN 17 mg/dL (7-18); eGFR NON AFRICAN AMERICAN 88 mL/min (90-120)
--- NOTE | 2021-04-20 07:00 | NUR ---
RECEIVED BEDSIDE REPORT AND ASSUMED CARE OF PATIENT. PATIENT ALERT AND ORIENTED, LAYING BACKWARDS IN BED, CHEST TUBE TO WATER SEAL WITH AIR LEAK NOTED. SB- ON CM RATE 58, SPO2 94% ON 3 LPM VIA NC. PATIENT ASSISTED UP TO BEDSIDE CHAIR. CVL TO RIGHT SUBCLAVIAN, NSL. DRESSING C/D/I. SCDS AND EUGENE HOSE ON. HEAD TO TOE ASSESSMENT COMPLETED.
--- NOTE | 2021-04-20 08:24 | NUR ---
PATEINT COMPLETED EATING BREAKFAST AND INSISTS ON GOING BACK TO BED. INSISTENT ON LAYING BACKWARDS WITH HEAD AT FOOT OF BED. VSS.
--- NOTE | 2021-04-20 09:35 | NUR ---
PATIENT WALKED APPROXIMATELY 60 FT WITH PT. UP TO BEDSIDE CHAIR.
--- NOTE | 2021-04-20 10:07 | NUR ---
CHEST TUBE CLAMPED. WILL OBTAIN CXR IN 1 HR TO DETERMINE IF FEASIBLE TO REMOVE CHEST TUBE. PATIENT UP IN BEDSIDE CHAIR, NO NEEDS AT THIS TIME. VSS.
--- NOTE | 2021-04-20 10:19 | NUR ---
RIGHT CVL DRESSING CHANGED.
--- NOTE | 2021-04-20 11:04 | NUR ---
Nutrition Follow-up: POD 5. Pt reports appetite improving, although nursing reports only 20% intake of breakfast this AM. Likes Ensure and reports drinking them as provided. -BM; +flatus. Diet: Regular, Ensure TID PO intake: 83% avg x 3 meals yesterday; 20% this AM Wt: 212# (04/20) Labs noted: Glu 136, Ca 8.0, Alb 2.5 Meds noted: Protonix -Encourage PO intake and honor food preferences. -Monitor wt. -RD follow-up: 04/21
--- NOTE | 2021-04-20 11:13 | NUR ---
REASSESSMENT COMPLETED. NO NEEDS AT THIS TIME. VSS.
--- NOTE | 2021-04-20 11:30 | NUR ---
PATIENTS CHAIR ALARM GOING OFF, WALKED INTO ROOM AND PATIENT ON HIS KNEES LEANING OVER HIS BED, STATES HE THOUGHT HE COULD GET BACK TO BED ON HIS OWN AND HIS LEGS GAVE OUT. STATES DID NOT FALL. ASSISTED UP TO BED.
--- NOTE | 2021-04-20 13:07 | NUR ---
PATIENT RESTING QUIETLY EYES CLOSED. VSS.
--- NOTE | 2021-04-20 13:36 | NUR ---
PATIENT ASSISTED UP TO BEDSIDE CHAIR. CHAIR ALARM ON.
--- NOTE | 2021-04-20 13:51 | NUR ---
XRAY AT ROOM FOR CXR.
--- NOTE | 2021-04-20 13:58 | NUR ---
PT AT ROOM AND ASSIST PATIENT TO SIT ON SIDE OF BED. SITS UP ON SIDE OF BED WITH ASSISTANCE X 2 FOR APPROXIMATELY 13 MINUTES.
--- NOTE | 2021-04-20 14:58 | NUR ---
REASSESSMENT COMPLETED. VSS. NO NEEDS AT THIS TIME.
[2021-04-21] VITALS (41 sets, daily range): BP systolic 71–139; BP diastolic 35–79; Ht 172.7 cm; Wt 83.1 kg
[2021-04-21 04:49] LABS: HEMATOCRIT 26.2 % (42.0-54.0); HEMOGLOBIN 9.1 g/dL (13.5-17.5); MCH 36.1 pg (26.0-34.0); MCHC 34.7 g/dL (31.0-37.0); MCV 104.1 fL (80.0-100.0); RBC 2.51 10x6/uL (4.20-6.10); RDW 16.1 % (11.5-14.5); WBC 5.9 10x3/uL (4.8-10.8)
[2021-04-21 05:04] LABS: ALBUMIN 2.5 g/dL (3.4-5.0); ALKALINE PHOSPHATASE 53 U/L (30-120); ALT (SGPT) 33 U/L (10-68); BILIRUBIN - TOTAL 0.33 mg/dL (0.2-1.3); CALC OSMOLALITY 273 mosm/kg (275-300); CALCIUM 7.9 mg/dL (8.5-10.1); CARBON DIOXIDE 28.6 mmol/L (21.0-32.0); CHLORIDE - SERUM 100 mmol/L (98-107); GLUCOSE 115 mg/dL (74-106); POTASSIUM - SERUM 3.4 mmol/L (3.5-5.1); PROTEIN - SERUM 5.6 g/dL (6.4-8.2); SODIUM 136 mmol/L (136-145); UREA NITROGEN 14 mg/dL (7-18); eGFR NON AFRICAN AMERICAN 78 mL/min (90-120)
--- NOTE | 2021-04-21 06:41 | NUR ---
PT COMPLAINED OF PAIN AT 8 OR 9/10 THROUGHOUT THE NIGHT. SPOKE WITH DR. Horan AT 2230 AND RECEIVED ORDER FOR MORPHINE Q1HOUR. MORPHINE 1MG, NORCO 5/325MG AND TORDAL 15MG WERE GIVEN THROUGHOUT THE NIGHT. PT STATES THAT PAIN REMAINS CONSTANT BUT THE MEDICATION HAS HELPED EASE PAIN ENOUGH FOR HIM TO GET A LITTLE BIT OF REST THIS MORNING.
--- NOTE | 2021-04-21 07:47 | NUR ---
ASSISTED PT TO DANGLE AT BS IN ATTEMPTS TO GET OOB FOR BREAKFAST. PT BECAME NAUSEATED. HR DROPS TO 50 THEN 47. BP 77/25 LYING DOWN. REPETE BP 101/40. HR 53 AT REST. WILL REPORT TO DR WILLINGHAM AND HOLD PAIN MEDS. NS AT BS.
--- NOTE | 2021-04-21 08:34 | NUR ---
AFIB RVR 130. BP 105/59. REPORTED TO DR WILLINGHAM. LOPRESSOR 2.5 GIVEN.
--- NOTE | 2021-04-21 10:55 | NUR ---
PT CONTINUES TO BE IN AFIB 130. REPORTED TO DR WILLINGHAM. AMIODARONE STARTED.
--- NOTE | 2021-04-21 11:54 | NUR ---
Nutrition Reassessment/Follow-up: Overall poor PO intake. Noted pt with nausea this AM. Nursing reports that pt did not eat breakfast 2/2 going into afib RVR. Diet: Regular, Ensure TID PO intake: 40% avg x 3 meals yesterday Wt: 189# (04/21); 212# (04/20); 194.8# (04/14) I/O: -1248 mL yesterday Labs noted: K+ 3.4, Glu 115, Ca 7.9, Alb 2.5 Meds noted: Protonix Nutrition Diagnosis: -Inadequate energy intake R/T decreased appetite, nausea AEB poor PO intake reported. Nutrition Goals: -PO intake >=75% avg of meals/snacks. -Stable dry wt. Nutrition Intervention: -Nutrition needs unchanged since initial assessment. -Encourage PO intake and honor food preferences. -Continue Ensure as tolerated. -Monitor wt. Noted 23# difference from yesterday but unsure of accuracy. -RD follow-up: 04/25
--- NOTE | 2021-04-21 12:27 | NUR ---
PT CONTINUES TO HAVE AFIB RVR. RATE 128. REPORTED TO DR WILLINGHAM. 2ND AMIODARONE BOLUS GIVEN. RYTHM AND RATE UNCHANGED AFTER 30 MIN.
--- NOTE | 2021-04-21 13:39 | NUR ---
REPORTED TO DR WILLINGHAM BP 70/41. CARITO STARTED.
[2021-04-22] VITALS (71 sets, daily range): BP systolic 78–138; BP diastolic 38–75
[2021-04-22 05:26] LABS: HEMATOCRIT 31.2 % (42.0-54.0); HEMOGLOBIN 10.6 g/dL (13.5-17.5); MCH 35.3 pg (26.0-34.0); MCHC 33.9 g/dL (31.0-37.0); MCV 104.1 fL (80.0-100.0); RDW 16.4 % (11.5-14.5)
[2021-04-22 05:33] LABS: WBC 7.5 10x3/uL (4.8-10.8)
[2021-04-22 05:44] LABS: ALBUMIN 2.6 g/dL (3.4-5.0); ALKALINE PHOSPHATASE 53 U/L (30-120); ALT (SGPT) 38 U/L (10-68); BILIRUBIN - TOTAL 0.24 mg/dL (0.2-1.3); CALC OSMOLALITY 284 mosm/kg (275-300); CALCIUM 8.5 mg/dL (8.5-10.1); CARBON DIOXIDE 30.4 mmol/L (21.0-32.0); CHLORIDE - SERUM 105 mmol/L (98-107); GLUCOSE 110 mg/dL (74-106); POTASSIUM - SERUM 3.9 mmol/L (3.5-5.1); SODIUM 142 mmol/L (136-145); UREA NITROGEN 14 mg/dL (7-18); eGFR NON AFRICAN AMERICAN 78 mL/min (90-120)
--- NOTE | 2021-04-22 12:41 | NUR ---
CT TO RIGHT SIDE REMOVED BY DR. WILLINGHAM. 20CC SEROUS DRAINAGE NOTED ON REMOVAL. PT RESTING ON HIS LEFT SIDE. SPOUSE AT BEDSIDE.
--- NOTE | 2021-04-22 12:57 | NUR ---
SAUD DURÁN DC'D PER DR. WILLINGHAM ORDER. CONTINUE TO RUN AMIODARONE DRIP FOR ANOTHER 4HR THEN TURN OFF. START PO AMIODARONE. DR. WILLINGHAM WANTS TO SEE IF CARDIOLOGY WANTS TO ADD ORAL DIGOXIN. PT RESTING COMFORTABLY. WILL CONTINUE TO MONITOR.
--- NOTE | 2021-04-22 13:38 | NUR ---
SPOKE WITH DR. ROBIN REGARDING DIGOXIN DOSE. HE DOES NOT WANT TO ADD DIGOXIN AT THIS TIME. CONTINUE WITH ONLY AMIODARONE PO DOSE.
--- NOTE | 2021-04-22 14:26 | NUR ---
AMBULATED AROUND THE BED WITH PHYSICAL THERAPY.
[2021-04-23] VITALS (35 sets, daily range): BP systolic 93–147; BP diastolic 28–79
--- NOTE | 2021-04-23 04:28 | NUR ---
PATIENT MEDICATED MULTIPLE TIMES THROUGHOUT SHIFT FOR PAIN. PATIENT ASKS FOR PAIN MEDICATION WITHIN AN HOUR OR LESS OF PREVIOUS ADMINISTRATION. EXPLAINED TO PATIENT THE SIDE EFFECTS FROM EXCESSIVE NARCOTIC ADMINSTATION WHEN HE ALREADY HAS BRADYACRDIA AND HYPOTENSION. CARITO GTT DECREASED TO 0.1 AND THEN DISCONTINUED.
[2021-04-23 07:04] LABS: BASOPHILS 0.6 % (0-2); EOSINOPHILS 5.3 % (0-7); HEMATOCRIT 27.2 % (42.0-54.0); HEMOGLOBIN 9.3 g/dL (13.5-17.5); LYMPHOCYTES 39.2 % (15-50); MCH 35.9 pg (26.0-34.0); MCHC 34.3 g/dL (31.0-37.0); MCV 104.7 fL (80.0-100.0); MEAN PLATELET VOLUME 8.1 fL (7.4-10.4); MONOCYTES 7.9 % (2-11); PLATELET COUNT 225 10x3/uL (130-400); RDW 15.5 % (11.5-14.5); WBC 5.8 10x3/uL (4.8-10.8)
[2021-04-23 07:21] LABS: ALBUMIN 2.6 g/dL (3.4-5.0); ALKALINE PHOSPHATASE 53 U/L (30-120); ALT (SGPT) 34 U/L (10-68); CALCIUM 8.2 mg/dL (8.5-10.1); CARBON DIOXIDE 27.6 mmol/L (21.0-32.0); CHLORIDE - SERUM 104 mmol/L (98-107); CREATININE - SERUM 0.9 mg/dL (0.6-1.3); GLUCOSE 93 mg/dL (74-106); POTASSIUM - SERUM 4.1 mmol/L (3.5-5.1); PROTEIN - SERUM 5.9 g/dL (6.4-8.2); SODIUM 137 mmol/L (136-145); eGFR NON AFRICAN AMERICAN 88 mL/min (90-120)
[2021-04-23 07:24] LABS: CALC OSMOLALITY 277 mosm/kg (275-300); UREA NITROGEN 25 mg/dL (7-18)
--- NOTE | 2021-04-23 08:19 | NUR ---
SPOKE WITH DR. ROBIN REGARDING HR BEING IN 40S THROUGH OUT THE NIGHT. ORDERED TO DECREASE AMIODARONE DOSE DOSE TO ONCE DAILY.
--- NOTE | 2021-04-23 09:15 | NUR ---
AMBULATED WITH PHYSICAL THERAPY.
--- NOTE | 2021-04-23 10:00 | NUR ---
AM MEDS GIVEN. DRESSING TO SATURATED. DRESSING CHANGED AT THIS TIME. PETROLEUM GAUZE COVERED WITH 4X4S AND TAGEDERM DRESSING APPLIED OVER AREA.
--- NOTE | 2021-04-23 12:28 | NUR ---
DR. WILLINGHAM IN UNIT. CALL PLACED TO KAZ PT'S SPOUSE. SHE WILL BE IN TO SEE PT IN ABOUT AN HOUR. WILL ASSESS HOW COMFORTABLY SHE IS WITH TRANSFERRING PT IN AND OUT OF BED WHEN PHYSICAL THERAPY ROUNDS THIS AFTERNOON.
[2021-04-23] MEDS ORDERED: AMIODARONE HCL200 MG PO (13:27)
[2021-04-23] MEDS ORDERED: HYDROCODON-ACE1 EAC7 PO (13:28)
[2021-04-23] MEDS ORDERED: K-DUR20 MEQ PO (13:29)
--- NOTE | 2021-04-23 15:30 | NUR ---
DRESSING TO RIGHT SIDE SATURATED. OLD DRESSING REMOVED. LOWER INCISION SITE SLIGHTLY OPEN. UPPER INCISION SITE OPEN. UNABLE TO FULLY DETERMINE WHICH INCISION IS DRAINING. MOST LIKELY THE UPPER ONE. SITE COVERED WITH PETROLEUM GAUZE, 4X4S AND TAGEDERM DRESSING. PT TOLERATED WELL. INSTRUCTED PT TO NOTIFY NURSING STAFF IF DRESSING IS SATURATED AGAIN. SPOUSE AT BEDSIDE. WILL CONTINUE TO MONITOR.
--- NOTE | 2021-04-23 17:45 | NUR ---
RIGHT SIDE DRESSING WITH DRAINAGE TO THE BOTTOM. DOES NOT NEED CHANGED AT THIS TIME. WILL CONTINUE TO MONITOR.
[2021-04-24] VITALS (9 sets, daily range): BP systolic 91–138; BP diastolic 34–70
--- NOTE | 2021-04-24 15:03 | MORECARE ---
CASE MANAGEMENT DISCHARGE SUMMARY PATIENT: IGGY BLAKE UNIT: [id number] ADM DATE: 04/14/21 AGE: 71 : 48 SEX: M ROOM/BED: [facility] AUTHOR: BASIA,DOC PHYSICIAN: REFERRING PHYSICIAN: ANGELIQUE ROBIN MD DATE OF SERVICE: 04/24/21 Case Management Discharge Planning Summary DCP REVIEW SUMMARY ANTICIPATED D/C DATE: EXPECTED LOS : CASE STATUS: DCP Initiated INITIAL REVIEW: 04/14/2021 INITIAL REVIEWER: Amber Cullen FINAL DISCHARGE DISPOSITION: 01 : Home or Self Care (Routine Discharge) FINAL REVIEWER: Amber Cullen FINAL REVIEW DATE: 04/24/2021 DCP Focus Questions & Answers QUESTION: ANSWER : PATIENT: IGGY BLAKE ENCOUNTER: [id number] MEDICAL RECORD#: [id number] ADMISSION DATE: 04/14/2021 DISCHARGE DATE: 04/24/2021 ATTENDING MD: KOKI - ANGELIQUE ROBIN : AGE: 71 MARITAL STATUS: M DC PLAN ID: [id number] FACILITY: [facility] PRINTED ON: 04/24/21 15:03 CT All edits/amendments must be made on the electronic document DICTATION DATE: 04/24/211502 CHIEF TECHNICAL OFFICER: RADHA 04/24/21 150 RPT#: [id number] DC DATE:04/24/21 STATUS: DIS IN [facility] [address] [place] [address] END OF REPORT
--- NOTE | 2021-04-24 15:13 | MORECARE ---
CASE MANAGEMENT DISCHARGE SUMMARY PATIENT: IGGY BLAKE UNIT: [id number] ADM DATE: 04/14/21 AGE: 71 : 48 SEX: M ROOM/BED: [facility] AUTHOR: ROSALINO FLOR PHYSICIAN: REFERRING PHYSICIAN: ANGELIQUE ROBIN MD DATE OF SERVICE: 04/24/21 Case Management Discharge Planning Summary DCP REVIEW SUMMARY ANTICIPATED D/C DATE: EXPECTED LOS : CASE STATUS: DCP Initiated INITIAL REVIEW: 04/14/2021 INITIAL REVIEWER: Amber Cullen FINAL DISCHARGE DISPOSITION: 01 : Home or Self Care (Routine Discharge) FINAL REVIEWER: Amber Cullen FINAL REVIEW DATE: 04/24/2021 DCP Focus Questions & Answers DCP Evaluation QUESTION: ANSWER Patient's ability to cope with chronic illness : d. No chronic illness Patient's current cognitive status: : *Oriented to person, place, situation, time and present Family / Caregiver's ability to cope with chronic illness: : b. Minimal (occasionally not dependable to meet pt's. needs, can meet pt's. basic ADL's) Patient and/or caregiver agree upon recommended discharge plan? : Yes Physical Status: : Independent with ADL's Family / Caregiver's ability to cope with chronic illness: : a. Adequate (ability to meet patient's medical needs, ensures patient attends medical appts.) Functional screen assessment: : New onset in difficulty in gait, balance, or transfer difficulties Living Arrangements: : Home with Spouse/Significant Other Baseline cognitive status: : *Oriented to person, place, situation, time and present Patient with capacity for self-care or can be cared for in same environment as prior to hospitalization? : Yes Results of this evaluation have been discussed with: : Patient Physical environment modification needed / anticipated for discharge: : N/A Medication Management: : Patient states can read and understand medication labels Pharmacy name(s): : [facility] Planned post hospital services available for patient? : N/A Does Patient have transportation to get home and to follow-up medical appointments when discharged from the hospital? : Yes Planned post hospital services covered by insurance plan? : N/A Would patient like to participate in any Care Coordination programs (if applicable): : Not applicable Does the patient have electricity at home? : Yes Does the patient have running water in their house? : Yes Mental health screen: : No mental health history DCP Re-evaluation QUESTION: ANSWER Would patient like to participate in any Care Coordination programs (if applicable): : Not applicable PATIENT: IGGY BLAKE ENCOUNTER: [id number] MEDICAL RECORD#: [id number] ADMISSION DATE: 04/14/2021 DISCHARGE DATE: 04/24/2021 ATTENDING MD: ANGELIQUE SOLIMAN : AGE: 71 MARITAL STATUS: M DC PLAN ID: [id number] FACILITY: [facility] PRINTED ON: 04/24/21 15:13 CT All edits/amendments must be made on the electronic document DICTATION DATE: 04/24/211512 EXCELLENCE SPECIALIST: RADHA 04/24/211512 RPT#: [id number] DC DATE:04/24/21 STATUS: DIS IN [facility] [address] [place] [address] END OF REPORT
== END 2021-04-24 14:11 | disposition home or self-care (01) | DRG 164 ==
LOC: D.CATH 11:13 → D.CVICU 16:57
PROVIDERS: Thoracic Surgery (Cardiothoracic Vascular Surgery); ADMIT Internal Medicine Interventional Cardiology; ATTEND Internal Medicine Interventional Cardiology
PROC: B2111ZZ Fluoroscopy of Multiple Coronary Arteries using Low Osmolar Contrast (ICD-10-PCS; 2021-04-14)
PROC: B2151ZZ Fluoroscopy of Left Heart using Low Osmolar Contrast (ICD-10-PCS; 2021-04-14)
PROC: 4A023N7 Measurement of Cardiac Sampling and Pressure, Left Heart, Percutaneous Approach (ICD-10-PCS; 2021-04-14)
PROC: 4A033BC Measurement of Arterial Pressure, Coronary, Percutaneous Approach (ICD-10-PCS; 2021-04-14)
PROC: 0BTF0ZZ Resection of Right Lower Lung Lobe, Open Approach (ICD-10-PCS; principal; 2021-04-15 09:00)
PROC: 07T70ZZ Resection of Thorax Lymphatic, Open Approach (ICD-10-PCS; 2021-04-15 09:00)
DX: C34.31 Malignant neoplasm of lower lobe, right bronchus or lung (principal); J93.82 Other air leak; J98.11 Atelectasis; J90 Pleural effusion, not elsewhere classified; I25.10 Atherosclerotic heart disease of native coronary artery without angina pectoris; F17.200 Nicotine dependence, unspecified, uncomplicated; K21.9 Gastro-esophageal reflux disease without esophagitis; J44.9 Chronic obstructive pulmonary disease, unspecified; J30.9 Allergic rhinitis, unspecified; E78.5 Hyperlipidemia, unspecified; D64.9 Anemia, unspecified; E88.09 Other disorders of plasma-protein metabolism, not elsewhere classified

== ENCOUNTER → 2021-05-18 08:43 | Outpatient (CLI) | payer MEDICARE ==
[2021-04-21 15:13] VITALS: BMI 29.2
[~2021-05-18 08:43] MED LIST changes: +AMIODARONE HCL200 MG PO; +COMBIVENT RESPIM4 GM INH; +HYDROCODON-ACE1 EAC7 PO; +K-DUR20 MEQ PO; +MYSOLINE 50 MG50 MG; +MYSOLINE 50 MG50 MG PO; +PEPCID AC20 MG PO; +PRAVASTATIN SOD10 MG PO; +TIMOPTIC 0.25% O5 M1 EACH EYE; +XALATAN 0.0052.5 ML EACH EYE; +ZOLOFT50 MG PO
== END | disposition home or self-care (01) ==
LOC: D.RAD 08:43
PROVIDERS: ATTEND Thoracic Surgery (Cardiothoracic Vascular Surgery)
DX: Z98.890 Other specified postprocedural states (principal)

== ENCOUNTER 2021-05-22 02:12 | Inpatient (IN) | payer MEDICARE ==
[2021-05-22] VITALS (7 sets, daily range): BP systolic 94–128; BP diastolic 33–58
[~2021-05-22] VITALS: Ht 172.7 cm; Wt 81.6 kg
--- NOTE | 2021-05-22 02:25 | NUR ---
PATIENT STATES HE WAS PUTTING EYE DROPS IN HIS EYES AND FELL BACKWARD, FALLING INTO A DOOR, HIS BACK HITTING THE DOOR. HAVING MID TO LOW BACK PAIN, DENIES LOC. HAD RU LOBE OF LUNG REMOVED TWO WEEKS AGO DUE TO LUNG CANCER , IS UNDER CHEMO TREATMENT. TRAUMA BAND # [id number]
[2021-05-22 03:26] LABS: BASOPHILS 0.4 % (0-2); HEMOGLOBIN 10.3 g/dL (13.5-17.5)
[2021-05-22 03:28] LABS: EOSINOPHILS 1.5 % (0-7); LYMPHOCYTES 19.9 % (15-50); MCH 34.9 pg (26.0-34.0); MCHC 34.2 g/dL (31.0-37.0); MCV 101.9 fL (80.0-100.0); MEAN PLATELET VOLUME 7.3 fL (7.4-10.4); MONOCYTES 6.1 % (2-11); NEUTROPHILS 72.1 % (40-80); PLATELET COUNT 193 10x3/uL (130-400); RBC 2.94 10x6/uL (4.20-6.10); RDW 14.4 % (11.5-14.5)
[2021-05-22 03:32] LABS: CALC OSMOLALITY 280 mosm/kg (275-300); CALCIUM 8.4 mg/dL (8.5-10.1); CARBON DIOXIDE 26.6 mmol/L (21.0-32.0); CHLORIDE - SERUM 102 mmol/L (98-107); CREATININE - SERUM 1.2 mg/dL (0.6-1.3); GLUCOSE 126 mg/dL (74-106); SODIUM 139 mmol/L (136-145); UREA NITROGEN 14 mg/dL (7-18); eGFR NON AFRICAN AMERICAN 63 mL/min (90-120)
[2021-05-22 03:45] LABS: ALBUMIN 3.2 g/dL (3.4-5.0); ALKALINE PHOSPHATASE 88 U/L (30-120); ALT (SGPT) 27 U/L (10-68); PRO BNP 178 pg/mL (0-125); PROTEIN - SERUM 6.4 g/dL (6.4-8.2)
[2021-05-22 03:58] LABS: TROPONIN-I < 0.017 ng/mL (0.000-0.060)
--- NOTE | 2021-05-22 05:00 | NUR ---
WENT TO DISCHARGE PT, REMOVED IV, HELPED PT INTO WHEELCHAIR, WENT TO HELP PT IN CAR AND PT STATED HE COULDNT WALK HE WAS IN SO MUCH PAIN - BROUGHT PT BACK IN TO ER FOR DOCTOR TO EVALUATE PT, WHEN WHEELED PT BACK TO ROOM, PT GOT OUT OF WHEELCHAIR BEFORE NURSE COULD LOCK WHEELS AND GOT INTO BED WITHOUT ASSISTANCE
[2021-05-22 09:26] LABS: INR 1.23 (0.85-1.17); PROTIME 14.4 SECONDS (11.6-15.0)
--- NOTE | 2021-05-22 10:15 | NUR ---
PT GIVEN PAIN MEDICINE PRIOR TO AMBULATION TRIAL. PT STATES "I HAVE A WALKER AT HOME AND LONG I HAVE ONE I SHOULD BE ABLE TO GET AROUND AT HOME WITH MY 'S HELP". PT ABLE TO STAND AND TAKE A FEW STEPS RATES PAIN 4/10. MD HYLTON AWARE AND STATES HE WILL COME SEE PT SHORTLY TO EVALUATE.
[2021-05-22 10:41] LABS: THYROID STIMULATING HORMONE 2.06 uIU/mL (0.36-3.74)
--- NOTE | 2021-05-22 11:00 | NUR ---
MD HYLTON EVALUATED PT AT THIS TIME, PT EXPRESSES AGAIN THAT HE WOULD LIKE TO GO HOME. MD HYLTON STATES HE WILL WORK ON PUTTING IN D/C INSTRUCTIONS.
--- NOTE | 2021-05-22 11:15 | NUR ---
MD GOMEZ CALLED FOR CONSULT, ASKED TO NOT D/C PATIENT UNTIL SHE CAN EVALUATE THEM. PT AWARE OF DELAY IN DISCHARGE AT THIS TIME.
[2021-05-22 13:06] LABS: % SATURATION 20 % (15-55); IRON 46 ug/dl (35-150); TOTAL IRON BIND CAPACITY 228 ug/dl (260-445); UNSAT IRON BIND CAPACITY 182 ug/dl (150-375)
--- NOTE | 2021-05-22 13:30 | NUR ---
PT TOLD MD GOMEZ HE DID NOT FEEL OK RETURNING HOME HIS PAIN WAS NOW 10/10 WHILE WALKING. PT FAMILY MEMBER REQUESTING POSSIBLE PHYSICAL THERAPY OR REHAB THEY HAVE STAIRS AT HOME AND SHE IS UNSURE HOW GET AROUND AT HOME EVEN WITH WALKER.
--- NOTE | 2021-05-22 13:45 | NUR ---
PT SEEN AMBULATING AROUND ROOM WITH WALKER, WHEN ASKED TO EVALUATE PAIN PT STATES "IT'S A 10 IF I TRY TO MOVE OR STAND". SPOKE WITH BRITANY GOTTI ON MD HYLTON TEAM AND WAS UPDATED ON PT PAIN WHEN AMBULATING AT THIS TIME. BRITANY STATES SHE WILL PUT IN CONSULT FOR THERAPY TO REVIEW AND WILL TALK TO MD HYLTON ABOUT PT.
[2021-05-23] VITALS: BP 108/59
[2021-05-23 01:00] VITALS: BP 97/42
[2021-05-23 07:30] LABS: BASOPHILS 0.4 % (0-2); EOSINOPHILS 5.3 % (0-7); HEMATOCRIT 31.1 % (42.0-54.0); HEMOGLOBIN 10.3 g/dL (13.5-17.5); LYMPHOCYTES 24.3 % (15-50); MCH 34.4 pg (26.0-34.0); MCHC 33.3 g/dL (31.0-37.0); MCV 103.2 fL (80.0-100.0); MEAN PLATELET VOLUME 7.3 fL (7.4-10.4); MONOCYTES 6.2 % (2-11); NEUTROPHILS 63.8 % (40-80); PLATELET COUNT 184 10x3/uL (130-400); RBC 3.01 10x6/uL (4.20-6.10); RDW 14.4 % (11.5-14.5)
[2021-05-23 07:31] LABS: WBC 7.3 10x3/uL (4.8-10.8)
[2021-05-23 07:40] LABS: ALBUMIN 2.9 g/dL (3.4-5.0); ANION GAP 11.2 mmol/L (8-16); BILIRUBIN - TOTAL 0.37 mg/dL (0.2-1.3); CALCIUM 7.9 mg/dL (8.5-10.1); CARBON DIOXIDE 25.9 mmol/L (21.0-32.0); CREATININE - SERUM 1.1 mg/dL (0.6-1.3); PHOSPHOROUS 3.3 mg/dL (2.5-4.9); POTASSIUM - SERUM 4.1 mmol/L (3.5-5.1); PROTEIN - SERUM 6.3 g/dL (6.4-8.2)
[2021-05-23 09:01] LABS: BILIRUBIN NEGATIVE (NEGATIVE); KETONE NEGATIVE mg/dL (< 1+); NITRITE NEGATIVE (NEGATIVE); UROBILINOGEN NORMAL mg/dL (< 2)
--- NOTE | 2021-05-23 14:18 | NUR ---
REHAB PRESCREEN RECEIVED. PATIENT MAY NOT REQUIRE THERAPY IF HE PAIN COULD BE CONTROLLED. PATIENT IS A MANAGED MEDICARE, AND THEREFORE I WILL TRY TO GET HIM SUBMITTED TODAY, BUT IT MAY BE TOMORROW MORNING. THANK YOU FOR THIS EVALUATION. JONY WADE RN CLINICAL LIAISON, INPATIENT REAHB.
[2021-05-23 19:07] VITALS: BP 100/38
[2021-05-23 21:07] VITALS: BP 117/54
--- NOTE | 2021-05-23 21:50 | NUR ---
PT NEEDING TO USE BEDPAN, PT STATES HES UNABLE TO LAY ON BACK, PT MOVED HIMSELF TO SIT UP ON SIDE OF BED AND STOOD UP BUT REALIZED HE COULDNT USE BEDPAN THAT WAY SO PT IS LAYING ON SIDE HOLDING BEDPAN PER PT REQUEST
[2021-05-23 23:07] VITALS: BP 102/51
[2021-05-24] VITALS (9 sets, daily range): BP systolic 92–151; BP diastolic 38–63; BMI 27.4; BMI 27.3
--- NOTE | 2021-05-24 05:37 | NUR ---
PT REFUSING TO MOVE TO WHEELCHAIR AFTER USING TO USE RESTROOM EARLIER
[2021-05-24 06:04] LABS: BASOPHILS 0.5 % (0-2); EOSINOPHILS 1.9 % (0-7); HEMATOCRIT 30.6 % (42.0-54.0); HEMOGLOBIN 10.3 g/dL (13.5-17.5); LYMPHOCYTES 17.4 % (15-50); MCH 34.2 pg (26.0-34.0); MCHC 33.6 g/dL (31.0-37.0); MCV 101.9 fL (80.0-100.0); MEAN PLATELET VOLUME 7.8 fL (7.4-10.4); MONOCYTES 8.6 % (2-11); NEUTROPHILS 71.6 % (40-80); PLATELET COUNT 173 10x3/uL (130-400); RBC 3.01 10x6/uL (4.20-6.10); RDW 14.1 % (11.5-14.5); WBC 6.7 10x3/uL (4.8-10.8)
[2021-05-24 06:41] LABS: CALC OSMOLALITY 274 mosm/kg (275-300); CALCIUM 8.1 mg/dL (8.5-10.1); CARBON DIOXIDE 26.6 mmol/L (21.0-32.0); CHLORIDE - SERUM 100 mmol/L (98-107); CREATININE - SERUM 0.9 mg/dL (0.6-1.3); GLUCOSE 108 mg/dL (74-106); PHOSPHOROUS 3.4 mg/dL (2.5-4.9); SODIUM 136 mmol/L (136-145); UREA NITROGEN 17 mg/dL (7-18); eGFR NON AFRICAN AMERICAN 88 mL/min (90-120)
[2021-05-24 06:52] LABS: ALKALINE PHOSPHATASE 98 U/L (30-120); ALT (SGPT) 24 U/L (10-68)
--- NOTE | 2021-05-24 08:45 | NUR ---
PATIENT IN BED WITH EYES CLOSED RESTING QUIETLY. IV INTACT. CALL LIGHT WITHIN REACH.
--- NOTE | 2021-05-24 10:10 | NUR ---
PATIENT REFUSED ALL MEDS AT THIS TIME.
--- NOTE | 2021-05-24 11:25 | NUR ---
PATIENT IN BED WITH NO COMPLAINTS OR SIGNS OF DISTRESS. FAMILY AT BEDSIDE. CALL LIGHT WITHIN REACH.
--- NOTE | 2021-05-24 16:36 | NUR ---
PATIENT IN BED WITH IV INTACT. REFUSED BSCDS. STATED HE JUST WANTED HIS SOCKS ON. EDUCATED ABOUT BLOOD CLOTS. PATIENT WENT BACK TO SLEEP.
--- NOTE | 2021-05-24 20:30 | NUR ---
ALERT ANXIOUS, DEMANDING ANXIETY MEDS, EXPLAINED THAT HAD RECIEVED HIS MEDS AT 2 PM AFTER REFUSING THIS AM, STATES DOES NOT REMEMBER TAKING ANY MEDS, HAS TO HAVE HIS ANXIETY MEDS NOW, INSTRUCTED WILL HAVE TO CALL [employer] TO SEE IF CAN GET SOMETHING
--- NOTE | 2021-05-24 21:00 | NUR ---
FAUSTINO KELLER CALLED AND REPORTED ABOVE, ORDER RECIEVED ATIVAN GIVEN ORDERED
[2021-05-25 00:16] VITALS: BP 130/48
[2021-05-25 05:37] VITALS: BP 127/56
[2021-05-25 07:13] LABS: BASOPHILS 0.4 % (0-2); EOSINOPHILS 1.3 % (0-7); HEMATOCRIT 30.6 % (42.0-54.0); HEMOGLOBIN 10.2 g/dL (13.5-17.5); LYMPHOCYTES 19.1 % (15-50); MCH 34.2 pg (26.0-34.0); MCHC 33.4 g/dL (31.0-37.0); MCV 102.5 fL (80.0-100.0); MEAN PLATELET VOLUME 7.2 fL (7.4-10.4); MONOCYTES 12.5 % (2-11); NEUTROPHILS 66.7 % (40-80); PLATELET COUNT 185 10x3/uL (130-400); RBC 2.98 10x6/uL (4.20-6.10); RDW 13.9 % (11.5-14.5); WBC 6.4 10x3/uL (4.8-10.8)
[2021-05-25 07:42] LABS: ALBUMIN 2.7 g/dL (3.4-5.0); ALKALINE PHOSPHATASE 90 U/L (30-120); ALT (SGPT) 22 U/L (10-68); BILIRUBIN - TOTAL 0.34 mg/dL (0.2-1.3); CALC OSMOLALITY 271 mosm/kg (275-300); CALCIUM 7.8 mg/dL (8.5-10.1); CARBON DIOXIDE 27.3 mmol/L (21.0-32.0); CHLORIDE - SERUM 100 mmol/L (98-107); CREATININE - SERUM 0.8 mg/dL (0.6-1.3); GLUCOSE 110 mg/dL (74-106); MAGNESIUM - SERUM 1.9 mg/dL (1.8-2.4); PHOSPHOROUS 3.2 mg/dL (2.5-4.9); POTASSIUM - SERUM 4.1 mmol/L (3.5-5.1); PROTEIN - SERUM 5.7 g/dL (6.4-8.2); SODIUM 135 mmol/L (136-145); UREA NITROGEN 14 mg/dL (7-18); eGFR NON AFRICAN AMERICAN > 90 mL/min (90-120)
[2021-05-25 09:38] VITALS: BP 135/68
[2021-05-25 14:22] VITALS: BP 172/56
--- NOTE | 2021-05-25 14:28 | NUR ---
OT NOTE: PT LIEING IN BED IN POSITION. AGREEABLE TO ATTEMPT TO SIT UP ON EOB; REQUIRED MAX ASSIST AND CONTINUALLY TRYING TO PUSH IN OPPOSITE DIRECTION TO LIE DOWN..STATES THAT HE CANT DO IT BECAUSE OF THE PAIN.. HOWEVER, PT HAD JUST RECEIVED PAIN PILL AND STATED THAT HE FELT MUCH BETTER. ONLY AGREEABLE TO SIT UP A FEW SECONDS.. REFUSED TO ATTEMPT TOILET TRANSFER OR USE OF WALKER TO AMB TO SINK OR CHAIR.. ENCOURAGED PT TO SIT UP HIS LUNCH TRAY WAS HERE.. PT REFUSED.. EXPLAINED THAT HE WOULD HAVE TO START DOING MORE THERAPY THAN THIS IF HE WANTED TO IMPROVE.. PT DID NOT RESPOND. NATE NEWELL, OTR/L
[2021-05-25 15:17] VITALS: Ht 172.7 cm; Wt 81.6 kg
[2021-05-25 17:47] VITALS: BP 114/52
[2021-05-25 20:00] VITALS: BP 130/54
[2021-05-26] VITALS: BP 124/51
[2021-05-26 04:00] VITALS: BP 108/48
--- NOTE | 2021-05-26 06:48 | NUR ---
I have reviewed this patient and I concur with the Shift Assessment completed by the Licensed Practical Nurse today this shift.
[2021-05-26 08:07] LABS: BASOPHILS 0.7 % (0-2); EOSINOPHILS 2.5 % (0-7); HEMATOCRIT 30.1 % (42.0-54.0); HEMOGLOBIN 10.1 g/dL (13.5-17.5); LYMPHOCYTES 34.2 % (15-50); MCHC 33.7 g/dL (31.0-37.0); MCV 100.8 fL (80.0-100.0); MEAN PLATELET VOLUME 7.8 fL (7.4-10.4); MONOCYTES 10.8 % (2-11); NEUTROPHILS 51.8 % (40-80); PLATELET COUNT 204 10x3/uL (130-400); RBC 2.98 10x6/uL (4.20-6.10); RDW 14.2 % (11.5-14.5); WBC 6.4 10x3/uL (4.8-10.8)
[2021-05-26 08:14] LABS: ALBUMIN 2.5 g/dL (3.4-5.0); ALKALINE PHOSPHATASE 82 U/L (30-120); ALT (SGPT) 23 U/L (10-68); BILIRUBIN - TOTAL 0.36 mg/dL (0.2-1.3); CALC OSMOLALITY 274 mosm/kg (275-300); CARBON DIOXIDE 28.7 mmol/L (21.0-32.0); CHLORIDE - SERUM 101 mmol/L (98-107); CREATININE - SERUM 0.8 mg/dL (0.6-1.3); GLUCOSE 78 mg/dL (74-106); PHOSPHOROUS 3.8 mg/dL (2.5-4.9); POTASSIUM - SERUM 3.6 mmol/L (3.5-5.1); SODIUM 137 mmol/L (136-145); UREA NITROGEN 17 mg/dL (7-18); eGFR NON AFRICAN AMERICAN > 90 mL/min (90-120)
[2021-05-26 09:01] VITALS: BP 123/51
--- NOTE | 2021-05-26 12:19 | MORECARE ---
CASE MANAGEMENT DISCHARGE SUMMARY PATIENT: IGGY BLAKE UNIT: [id number] ADM DATE: 05/25/21 AGE: 71 : 48 SEX: M ROOM/BED: D.2215 AUTHOR: ROSALINO FLOR PHYSICIAN: REFERRING PHYSICIAN: DAVIE GAONA MD DATE OF SERVICE: 05/26/21 Case Management Discharge Planning Summary COMMENTS ENTERED DATE: 05/26/21 12:10 CT COMMENT TYPE: Discharge Planning REVIEWER: Anamika Valenzuela SUJEY FRANCE HERE ENTERED DATE: 05/25/21 14:50 CT COMMENT TYPE: Discharge Planning REVIEWER: Anamika Valenzuela CM met with patient to complete initial dc planning assessment. CM educated patient on the CM role and verbal consent given by patient to complete assessment. Patient lives at home with his where he states he is independent with his care. At discharge patient plans to return home and feels this is a safe discharge. CM discussed availability of home health, rehab services, and medical equipment. Before going home he will be going to inpatient rehab at [facility]. IMM served and explained. MYRANDA obtained. He has a walker, cane, and grabber at home. His PCP is Dr Ortiz and he uses [facility] on [address]. Patient denied known discharge needs at this time. CM will continue to follow and will assist as needed with dc plans/needs. DCP REVIEW SUMMARY ANTICIPATED D/C DATE: EXPECTED LOS : CASE STATUS: DCP Initiated INITIAL REVIEW: 05/22/2021 INITIAL REVIEWER: Anamika Valenzuela FINAL DISCHARGE DISPOSITION: : FINAL REVIEWER: FINAL REVIEW DATE: DCP Focus Questions & Answers QUESTION: ANSWER : PATIENT: IGGY BLAKE ENCOUNTER: [id number] MEDICAL RECORD#: [id number] ADMISSION DATE: 05/25/2021 DISCHARGE DATE: ATTENDING MD: BAY: AGE: 71 MARITAL STATUS: M DC PLAN ID: [id number] FACILITY: [facility] PRINTED ON: 05/26/21 12:19 CT All edits/amendments must be made on the electronic document DICTATION DATE: 05/26/211218 PROGRAM ENGINEER: DM 05/26/211218 RPT#: [id number] DC DATE: STATUS: ADM IN [facility] [address] [place] [address] END OF REPORT
--- NOTE | 2021-05-26 12:52 | MORECARE ---
CASE MANAGEMENT DISCHARGE SUMMARY PATIENT: IGGY BLAKE UNIT: [id number] ADM DATE: 05/25/21 AGE: 71 : 48 SEX: M ROOM/BED: D.2215 AUTHOR: ROSALINO FLOR PHYSICIAN: REFERRING PHYSICIAN: DAVIE GAONA MD DATE OF SERVICE: 05/26/21 Case Management Discharge Planning Summary COMMENTS ENTERED DATE: 05/26/21 12:10 CT COMMENT TYPE: Discharge Planning REVIEWER: Anamika Valenzuela SUJEY FRANCE HERE ENTERED DATE: 05/25/21 14:50 CT COMMENT TYPE: Discharge Planning REVIEWER: Anamika Valenzuela CM met with patient to complete initial dc planning assessment. CM educated patient on the CM role and verbal consent given by patient to complete assessment. Patient lives at home with his where he states he is independent with his care. At discharge patient plans to return home and feels this is a safe discharge. CM discussed availability of home health, rehab services, and medical equipment. Before going home he will be going to inpatient rehab at [facility]. IMM served and explained. MYRANDA obtained. He has a walker, cane, and grabber at home. His PCP is Dr Ortiz and he uses [facility] [address]. Patient denied known discharge needs at this time. CM will continue to follow and will assist as needed with dc plans/needs. DCP REVIEW SUMMARY ANTICIPATED D/C DATE: EXPECTED LOS : CASE STATUS: DCP Initiated INITIAL REVIEW: 05/22/2021 INITIAL REVIEWER: Anamika Valenzuela FINAL DISCHARGE DISPOSITION: : FINAL REVIEWER: FINAL REVIEW DATE: DCP Focus Questions & Answers QUESTION: ANSWER : PATIENT: IGGY BLAKE ENCOUNTER: [id number] MEDICAL RECORD#: [id number] ADMISSION DATE: 05/25/2021 DISCHARGE DATE: ATTENDING MD: BAY: AGE: 71 MARITAL STATUS: M DC PLAN ID: [id number] FACILITY: [facility] PRINTED ON: 05/26/21 12:52 CT All edits/amendments must be made on the electronic document DICTATION DATE: 05/26/21 1252 DRYING TUNNEL OPERATOR: DM 05/26/21 1252 RPT#: [id number] DC DATE: STATUS: ADM IN [facility] [address] [place] [address] END OF REPORT
--- NOTE | 2021-05-26 13:32 | NUR ---
OT NOTE: ATTEMPTED TMT IN AM..PT WAS ON THE BED MERAZ. ABLE TO ROLL FROM SIDE TO SIDE WITH MIN ASSIST AND TOTAL ASSIST FOR TOILET HYGIENE. ATTEMPTED SUPINE TO SIT BUT PT UNABLE DUE TO PAIN. ALLOWED TO REST FOR A BIT AND ATTEMPTED ON OTHER SIDE OF BED. WAS ABLE TO COME TO SITTING WITH MAX ASSIST, BUT UNABLE TO TOLERATED EOB SITTING. ENCOURAGED PT TO SIT UP IN CHAIR TO CHANGE POSITIONS BUT COULD NOT DUE TO PAIN.. DISCUSSED PT IN IDT MTG TODAY AND THERE IS TO BE A TLSO ORDERED. IF IT ARRIVES TODAY, WILL ATTEMPT AGAIN IN PM NATE NEWELL, OTR/L [id number]
[2021-05-26 14:01] VITALS: BP 118/55
[2021-05-26 16:42] VITALS: BP 107/65
--- NOTE | 2021-05-26 18:09 | NUR ---
I have reviewed this patient and I concur with the Shift Assessment completed by the Licensed Practical Nurse today this shift.
--- NOTE | 2021-05-26 19:57 | NUR ---
PATIENT LAYING ON RT SIDE AT SHIFT CHANGE, NO SIGNS OF DISTRESS, PATIENT ASKED FOR BED MERAZ, ENCOURAGED HIM TO GET UP AND WALK, IV IN LEFT FA, CDI, PATENT, NO OTHER ENEDS VOICED, CONTINUE WITH PLAN OF CARE
[2021-05-26 20:00] VITALS: BP 120/71
[2021-05-27 00:13] VITALS: BP 122/62
[2021-05-27 04:35] VITALS: BP 118/60
--- NOTE | 2021-05-27 05:32 | NUR ---
I have reviewed this patient and I concur with the Shift Assessment completed by the Licensed Practical Nurse today this shift.
[2021-05-27 06:56] LABS: BASOPHILS 0.5 % (0-2); EOSINOPHILS 3.1 % (0-7); HEMATOCRIT 29.1 % (42.0-54.0); HEMOGLOBIN 9.9 g/dL (13.5-17.5); LYMPHOCYTES 48.3 % (15-50); MCHC 33.9 g/dL (31.0-37.0); MCV 100.2 fL (80.0-100.0); MEAN PLATELET VOLUME 7.4 fL (7.4-10.4); MONOCYTES 9.9 % (2-11); NEUTROPHILS 38.2 % (40-80); PLATELET COUNT 202 10x3/uL (130-400); RDW 14.3 % (11.5-14.5); WBC 5.6 10x3/uL (4.8-10.8)
--- NOTE | 2021-05-27 07:15 | NUR ---
REC'D IN BED WITH EYES CLOSED EASILY TO AROUSED WHEN NAME IS CALLED. RESP EVEN AND UNLABORED WITH NO DISTRESS NOTED. CAN EXPRESS NEEDS AND WANTS. NO C/O NOTED AT THIS TIME. ASSESSMENT COMPLETED. C/L IN REACH AT BEDSIDE.
[2021-05-27 07:17] LABS: ALBUMIN 2.6 g/dL (3.4-5.0); ALKALINE PHOSPHATASE 79 U/L (30-120); ALT (SGPT) 23 U/L (10-68); BILIRUBIN - TOTAL 0.32 mg/dL (0.2-1.3); CALC OSMOLALITY 276 mosm/kg (275-300); CALCIUM 8.1 mg/dL (8.5-10.1); CARBON DIOXIDE 26.4 mmol/L (21.0-32.0); CHLORIDE - SERUM 101 mmol/L (98-107); CREATININE - SERUM 0.8 mg/dL (0.6-1.3); GLUCOSE 87 mg/dL (74-106); MAGNESIUM - SERUM 2.2 mg/dL (1.8-2.4); PHOSPHOROUS 4.3 mg/dL (2.5-4.9); POTASSIUM - SERUM 3.4 mmol/L (3.5-5.1); PROTEIN - SERUM 5.9 g/dL (6.4-8.2); SODIUM 138 mmol/L (136-145); UREA NITROGEN 19 mg/dL (7-18); eGFR NON AFRICAN AMERICAN > 90 mL/min (90-120)
[2021-05-27 09:14] VITALS: BP 93/50
[2021-05-27 12:00] VITALS: BP 95/47
--- NOTE | 2021-05-27 13:04 | NUR ---
I have reviewed this patient and I concur with the Shift Assessment completed by the Licensed Practical Nurse today this shift.
--- NOTE | 2021-05-27 14:26 | NUR ---
OT NOTE: PT INITIALLY DOING WELL; ABLE TO BRIDGE IN BED WITHOUT DIFFICULTY WHILE BACK BRACE WAS APPLIED. SUPINE TO SIT WITH MIN ASSIST; AMB TO TOILET AND WAS ABLE TO STAND AND URINATE WITH SBA.. REPORTED THAT THE BRACE WAS REALLY HELPING; AMB TO SINK TO WASH HANDS WITH SBA FOR STANDING. THEN ALL OF A SUDDEN, PT REPORTING HE HAD TO LIE DOWN; ENCOURAGED PT TO WALK TO CHAIR, AFTER SITTING DOWN FOR JUST A SECOND, HE REPORTED THAT HE WAS GOING TO VOMIT; PROVIDED BUCKET; PT THEN SAID HE HAD TO LIE DOWN BECAUSE OF THE BACK PAIN. PT DID NOT ALTER POSITION WHEN PAIN WAS REPORTED. HIS TLSO WAS ON AND PROPERLY POSITIONED. UNSURE WHY PT HAD RAPID ONSET OF PAIN, BUT WAS ASSISTED BACK TO BED. NATE NEWELL, OTR/L [id number]
--- NOTE | 2021-05-27 15:34 | NUR ---
DC HOME AT THIS TIME WITH ALL PERSONAL BELONG. VOICE UNDERSTANDING OF DC INSTRUCTION. STABLE CONDITION UPON DEPARTURE.
[2021-05-27 16:28] VITALS: BP 99/40
[2021-05-27 20:00] VITALS: BP 126/57
[2021-05-28 00:33] VITALS: BP 120/60
[2021-05-28 08:49] VITALS: BP 112/52
--- NOTE | 2021-05-28 10:22 | NUR ---
SLEEPING ON RIGHT SIDE. PATIENT IS WITHOUT DISTRESS.
[2021-05-28 12:34] VITALS: BP 100/44
[2021-05-28 16:43] VITALS: BP 126/45
[2021-05-28 20:00] VITALS: BP 115/50
[2021-05-29] VITALS: BP 107/46
[2021-05-29 04:00] VITALS: BP 120/65
[2021-05-29 07:34] LABS: BASOPHILS 0.7 % (0-2); EOSINOPHILS 2.2 % (0-7); HEMATOCRIT 31.7 % (42.0-54.0); HEMOGLOBIN 10.4 g/dL (13.5-17.5); LYMPHOCYTES 28.9 % (15-50); MCH 33.4 pg (26.0-34.0); MCHC 32.9 g/dL (31.0-37.0); MCV 101.4 fL (80.0-100.0); MEAN PLATELET VOLUME 8.1 fL (7.4-10.4); MONOCYTES 8.3 % (2-11); NEUTROPHILS 59.9 % (40-80); PLATELET COUNT 231 10x3/uL (130-400); RBC 3.12 10x6/uL (4.20-6.10); WBC 8.5 10x3/uL (4.8-10.8)
[2021-05-29 08:03] LABS: ALBUMIN 2.8 g/dL (3.4-5.0); ALKALINE PHOSPHATASE 92 U/L (30-120); ALT (SGPT) 21 U/L (10-68); BILIRUBIN - TOTAL 0.29 mg/dL (0.2-1.3); CALC OSMOLALITY 272 mosm/kg (275-300); CALCIUM 8.3 mg/dL (8.5-10.1); CARBON DIOXIDE 26.9 mmol/L (21.0-32.0); CHLORIDE - SERUM 101 mmol/L (98-107); CREATININE - SERUM 0.9 mg/dL (0.6-1.3); GLUCOSE 90 mg/dL (74-106); POTASSIUM - SERUM 3.6 mmol/L (3.5-5.1); PROTEIN - SERUM 6.3 g/dL (6.4-8.2); SODIUM 136 mmol/L (136-145); UREA NITROGEN 16 mg/dL (7-18); eGFR NON AFRICAN AMERICAN 88 mL/min (90-120)
[2021-05-29 09:52] VITALS: BP 111/55
--- NOTE | 2021-05-29 10:43 | NUR ---
CALLED FOR AN UPDATE. WAS ABLE TO TELL HER THERE IS A ORDER FOR PT. WELL WHAT THE OT NOTE SAID. THERE IS AN ORDER FOR A REHAB CONSULT. STATED THAT SHE FELT IT WOULD HELP HIM TO TAKE A SHOWER. PAN VILLAGOMEZ WENT TO ROOM AND ASKED PT. HE STATED HE WOULD DO IT AFTER A LITTLE WHILE. CL IN REACH. TM
[2021-05-29 13:40] VITALS: BP 102/43
[2021-05-29 17:08] VITALS: BP 121/62
[2021-05-29 20:00] VITALS: BP 127/66
[2021-05-30 04:00] VITALS: BP 136/78
[2021-05-30 05:45] LABS: BASOPHILS 0.6 % (0-2); EOSINOPHILS 2.7 % (0-7); HEMATOCRIT 29.6 % (42.0-54.0); LYMPHOCYTES 44.9 % (15-50); MCH 33.8 pg (26.0-34.0); MCHC 33.7 g/dL (31.0-37.0); MCV 100.4 fL (80.0-100.0); MEAN PLATELET VOLUME 7.7 fL (7.4-10.4); MONOCYTES 8.5 % (2-11); NEUTROPHILS 43.3 % (40-80); PLATELET COUNT 221 10x3/uL (130-400); RBC 2.95 10x6/uL (4.20-6.10); RDW 14.1 % (11.5-14.5)
[2021-05-30 05:48] LABS: WBC 6.1 10x3/uL (4.8-10.8)
[2021-05-30 06:13] LABS: ALBUMIN 2.8 g/dL (3.4-5.0); ALKALINE PHOSPHATASE 82 U/L (30-120); ALT (SGPT) 23 U/L (10-68); BILIRUBIN - TOTAL 0.35 mg/dL (0.2-1.3); CALC OSMOLALITY 277 mosm/kg (275-300); CALCIUM 8.2 mg/dL (8.5-10.1); CARBON DIOXIDE 29.1 mmol/L (21.0-32.0); CHLORIDE - SERUM 103 mmol/L (98-107); CREATININE - SERUM 0.9 mg/dL (0.6-1.3); GLUCOSE 80 mg/dL (74-106); PROTEIN - SERUM 6.1 g/dL (6.4-8.2); SODIUM 139 mmol/L (136-145); UREA NITROGEN 16 mg/dL (7-18); eGFR NON AFRICAN AMERICAN 88 mL/min (90-120)
--- NOTE | 2021-05-30 07:10 | NUR ---
REC'D IN BED WITH NO DISTRESS NOTED. RESP EVEN AND UNLABORED AT THIS TIME. CAN MAKE NEEDS AND WANTS KNOWN. NO C/O NOTED OR VOICED. ASSESSMENT COMPLETED. C/L IN REACH AT BEDSIDE.
[2021-05-30 09:23] VITALS: BP 119/44
[2021-05-30 12:31] VITALS: BP 111/51
--- NOTE | 2021-05-30 13:24 | MORECARE ---
CASE MANAGEMENT DISCHARGE SUMMARY PATIENT: IGGY BLAKE UNIT: [id number] ADM DATE: 05/25/21 AGE: 71 : 48 SEX: M ROOM/BED: D.2215 AUTHOR: BASIA,DOC PHYSICIAN: REFERRING PHYSICIAN: DAVIE GAONA MD DATE OF SERVICE: 05/30/21 Case Management Discharge Planning Summary COMMENTS ENTERED DATE: 05/30/21 13:20 CT COMMENT TYPE: Discharge Planning REVIEWER: Jazmine Feliz CM spoke with Rafaela in inpatient rehab. She states that the auth has . She states that she has spoken with Kelly and does not think [facility] will extend the auth since his ambulation has approved over the weekend. [facility] office is closed today. I called and left a message on voice mail with my direct call back number. ENTERED DATE: 05/26/21 12:10 CT COMMENT TYPE: Discharge Planning REVIEWER: Anamika FRANCE HERE ENTERED DATE: 05/25/21 14:50 CT COMMENT TYPE: Discharge Planning REVIEWER: Anamika Valenzuela CM met with patient to complete initial dc planning assessment. CM educated patient on the CM role and verbal consent given by patient to complete assessment. Patient lives at home with his where he states he is independent with his care. At discharge patient plans to return home and feels this is a safe discharge. CM discussed availability of home health, rehab services, and medical equipment. Before going home he will be going to inpatient rehab at [facility]. IMM served and explained. MYRANDA obtained. He has a walker, cane, and grabber at home. His PCP is Dr Ortiz and he uses [facility] [address]. Patient denied known discharge needs at this time. CM will continue to follow and will assist as needed with dc plans/needs. DCP REVIEW SUMMARY ANTICIPATED D/C DATE: EXPECTED LOS : CASE STATUS: DCP Initiated INITIAL REVIEW: 05/22/2021 INITIAL REVIEWER: Anamika Valenzuela FINAL DISCHARGE DISPOSITION: : FINAL REVIEWER: FINAL REVIEW DATE: DCP Focus Questions & Answers QUESTION: ANSWER : PATIENT: IGGY BLAKE ENCOUNTER: [id number] MEDICAL RECORD#: [id number] ADMISSION DATE: 05/25/2021 DISCHARGE DATE: ATTENDING MD: BAY: AGE: 71 MARITAL STATUS: M DC PLAN ID: [id number] FACILITY: [facility] PRINTED ON: 05/30/21 13:24 CT All edits/amendments must be made on the electronic document DICTATION DATE: 05/30/21 132 CONCRETE SPREADER: RADHA 05/30/21 1324 RPT#: [id number] DC DATE: STATUS: ADM IN [facility] [address] [place] [address] END OF REPORT
--- NOTE | 2021-05-30 17:20 | NUR ---
PATIENT AMBULATED 250 FEET OVER THE WEEKEEND WITH 5% ASSIST. ATTEMPTED TO CONTACT INSURANCE TO UPDATE CLINICALS BUT OFFICE WAS CLOSED DUE TO HOLIDAY. NOTIFIED TRINO PEACE RN, SYSTEMS TRAINER EARLIER TODAY AND BESS RUSSELL, SYSTEMS TRAINER THAT PATIENT'S MANAGED CARE INSURANCE MAY DETERMINE PATIENT IS MORE APPROPRIATE FOR HOME HEALTH.-MARIA ISABEL TIAN LPN, CLINICAL LIAISON
[2021-05-30 17:23] VITALS: BP 84/27
[2021-05-30 20:00] VITALS: BP 88/40
--- NOTE | 2021-05-30 22:00 | NUR ---
IV TO RIGHT FOREARM INFILTRATED, DCd CATH INTACT. 20G RESITED TO LEFT FOREARM, PATENT. CPOC.
[2021-05-31] VITALS: BP 138/73
[2021-05-31 05:23] LABS: BASOPHILS 0.9 % (0-2); HEMATOCRIT 29.4 % (42.0-54.0); HEMOGLOBIN 9.8 g/dL (13.5-17.5); LYMPHOCYTES 29.1 % (15-50); MCH 33.8 pg (26.0-34.0); MCHC 33.3 g/dL (31.0-37.0); MCV 101.6 fL (80.0-100.0); MEAN PLATELET VOLUME 7.6 fL (7.4-10.4); MONOCYTES 11.4 % (2-11); NEUTROPHILS 56.6 % (40-80); PLATELET COUNT 230 10x3/uL (130-400); RBC 2.89 10x6/uL (4.20-6.10); RDW 13.8 % (11.5-14.5); WBC 5.5 10x3/uL (4.8-10.8)
[2021-05-31 05:59] LABS: ALBUMIN 2.7 g/dL (3.4-5.0); ALKALINE PHOSPHATASE 89 U/L (30-120); BILIRUBIN - TOTAL 0.34 mg/dL (0.2-1.3); CALC OSMOLALITY 272 mosm/kg (275-300); CARBON DIOXIDE 25.7 mmol/L (21.0-32.0); CHLORIDE - SERUM 101 mmol/L (98-107); CREATININE - SERUM 0.9 mg/dL (0.6-1.3); GLUCOSE 78 mg/dL (74-106); POTASSIUM - SERUM 4.2 mmol/L (3.5-5.1); PROTEIN - SERUM 6.1 g/dL (6.4-8.2); SODIUM 136 mmol/L (136-145); UREA NITROGEN 18 mg/dL (7-18); eGFR NON AFRICAN AMERICAN 88 mL/min (90-120)
[2021-05-31 06:03] LABS: ALT (SGPT) 17 U/L (10-68)
--- NOTE | 2021-05-31 08:50 | NUR ---
PT SITTING UP IN BED EATING BREAKFAST. AM MEDS GIVEN. RR EVEN NONLABORED IV CDI. ALL NEEDS MET AT THIS TIME. CLWR.
[2021-05-31 08:51] VITALS: BP 91/40
[2021-05-31] MEDS ORDERED: MUCINEX600 MG PO (11:10)
[2021-05-31] MEDS ORDERED: FENTANYL1 EAC3 TRANSDERM (11:10)
--- NOTE | 2021-05-31 12:20 | MORECARE ---
CASE MANAGEMENT DISCHARGE SUMMARY PATIENT: IGGY BLAKE UNIT: [id number] ADM DATE: 05/25/21 AGE: 71 : 48 SEX: M ROOM/BED: D.2215 AUTHOR: BASIA,DOC PHYSICIAN: REFERRING PHYSICIAN: DAVIE GAONA MD DATE OF SERVICE: 05/31/21 Case Management Discharge Planning Summary COMMENTS ENTERED DATE: 05/31/21 12:15 CT COMMENT TYPE: Discharge Planning REVIEWER: Umm Alberts PATIENT TO DC TO INPATIENT REHAB [facility] TODAY. IMM SIGNED, COPY GIVEN AND PLACED ON CHART. CM TO FOLLOW AND ASSIST NEEDED. ENTERED DATE: 05/30/21 13:20 CT COMMENT TYPE: Discharge Planning REVIEWER: Jazmine Feliz CM spoke with Rafaela in inpatient rehab. She states that the auth has . She states that she has spoken with Kelly and does not think [facility] will extend the auth since his ambulation has approved over the weekend. [facility] office is closed today. I called and left a message on voice mail with my direct call back number. ENTERED DATE: 05/26/21 12:10 CT COMMENT TYPE: Discharge Planning REVIEWER: Anamika FRANCE HERE ENTERED DATE: 05/25/21 14:50 CT COMMENT TYPE: Discharge Planning REVIEWER: Anamika Valenzuela CM met with patient to complete initial dc planning assessment. CM educated patient on the CM role and verbal consent given by patient to complete assessment. Patient lives at home with his where he states he is independent with his care. At discharge patient plans to return home and feels this is a safe discharge. CM discussed availability of home health, rehab services, and medical equipment. Before going home he will be going to inpatient rehab at [facility]. IMM served and explained. MYRANDA obtained. He has a walker, cane, and grabber at home. His PCP is Dr Ortiz and he uses [facility] [address]. Patient denied known discharge needs at this time. CM will continue to follow and will assist as needed with dc plans/needs. DCP REVIEW SUMMARY ANTICIPATED D/C DATE: EXPECTED LOS : CASE STATUS: DCP Initiated INITIAL REVIEW: 05/22/2021 INITIAL REVIEWER: Anamika Valenzuela FINAL DISCHARGE DISPOSITION: : FINAL REVIEWER: FINAL REVIEW DATE: DCP Focus Questions & Answers QUESTION: ANSWER : PATIENT: IGGY BLAKE ENCOUNTER: [id number] MEDICAL RECORD#: [id number] ADMISSION DATE: 05/25/2021 DISCHARGE DATE: ATTENDING MD: BAY: AGE: 71 MARITAL STATUS: M DC PLAN ID: [id number] FACILITY: [facility] PRINTED ON: 05/31/21 12:20 CT All edits/amendments must be made on the electronic document DICTATION DATE: 05/31/21 122 NAPHTHA WASHING SYSTEM OPERATOR: RADHA 05/31/21 1220 RPT#: [id number] DC DATE: STATUS: ADM IN [facility] [address] [place] [address] END OF REPORT
--- NOTE | 2021-05-31 16:37 | NUR ---
TRANSFERRED DOWN TO INPATIENT REHAB AT THIS TIME WITH ALL PERSONAL BELONGING. STABLE CONDITION UPON DEPARTURE. AT BEDSIDE.
--- NOTE | 2021-05-31 16:38 | NUR ---
PATIENT ACCEPTED TO INPATIENT REHAB. ASSIGNED ROOM 1119B. NOTIFIED CHRISTOPHER HOG WORKER AND BESS GUTIERREZ, SELLERS SUP- MARIA ISABEL TIAN LPN, CLINICAL LIAISON
--- NOTE | 2021-05-31 16:49 | MORECARE ---
CASE MANAGEMENT DISCHARGE SUMMARY PATIENT: IGGY BLAKE UNIT: [id number] ADM DATE: 05/25/21 AGE: 71 : 46 SEX: M ROOM/BED: D.2215 AUTHOR: BASIA,DOC PHYSICIAN: REFERRING PHYSICIAN: DAVIE GAONA MD DATE OF SERVICE: 05/31/21 Case Management Discharge Planning Summary COMMENTS ENTERED DATE: 05/31/21 12:15 CT COMMENT TYPE: Discharge Planning REVIEWER: Umm Alberts PATIENT TO DC TO INPATIENT REHAB [facility] TODAY. IMM SIGNED, COPY GIVEN AND PLACED ON CHART. CM TO FOLLOW AND ASSIST NEEDED. ENTERED DATE: 05/30/21 13:20 CT COMMENT TYPE: Discharge Planning REVIEWER: Jazmine Feliz CM spoke with Rafaela in inpatient rehab. She states that the auth has . She states that she has spoken with Kelly and does not think [facility] will extend the auth since his ambulation has approved over the weekend. [facility] office is closed today. I called and left a message on voice mail with my direct call back number. ENTERED DATE: 05/26/21 12:10 CT COMMENT TYPE: Discharge Planning REVIEWER: Anamika FRANCE HERE ENTERED DATE: 05/25/21 14:50 CT COMMENT TYPE: Discharge Planning REVIEWER: Anamika Valenzuela CM met with patient to complete initial dc planning assessment. CM educated patient on the CM role and verbal consent given by patient to complete assessment. Patient lives at home with his where he states he is independent with his care. At discharge patient plans to return home and feels this is a safe discharge. CM discussed availability of home health, rehab services, and medical equipment. Before going home he will be going to inpatient rehab at [facility]. IMM served and explained. MYRANDA obtained. He has a walker, cane, and grabber at home. His PCP is Dr Ortiz and he uses [facility] [address]. Patient denied known discharge needs at this time. CM will continue to follow and will assist as needed with dc plans/needs. DCP REVIEW SUMMARY ANTICIPATED D/C DATE: EXPECTED LOS : CASE STATUS: DCP Initiated INITIAL REVIEW: 05/22/2021 INITIAL REVIEWER: Anamika Valenzuela FINAL DISCHARGE DISPOSITION: : FINAL REVIEWER: FINAL REVIEW DATE: DCP Focus Questions & Answers QUESTION: ANSWER : PATIENT: IGGY BLAKE ENCOUNTER: [id number] MEDICAL RECORD#: [id number] ADMISSION DATE: 05/25/2021 DISCHARGE DATE: 05/31/2021 ATTENDING MD: BAY: 1950- AGE: 71 MARITAL STATUS: M DC PLAN ID: [id number] FACILITY: [facility] PRINTED ON: 05/31/21 16:49 CT All edits/amendments must be made on the electronic document DICTATION DATE: 05/31/211648 CABLE TOOL DRILLER: RADHA 05/31/211648 RPT#: [id number] DC DATE:05/31/21 STATUS: DIS IN [facility] [address] [place] [address] END OF REPORT
--- NOTE | 2021-05-31 18:37 | NUR ---
OT NOTE: PT COMPLETED SUPINE TO SIT WITH SBA. PT REQUIRED MOD A TO FAUSTO/DOFF BRACE. PT COMPLETED SIT TO STAND WITH SBA-CGA. PT COMPLETED TOILETING TASKS WITH SBA. PT COMPLETED BUE AROM EXS AT EOB TOLERATED. [phone] BRENDA JACKSON COTA
== END 2021-05-31 16:46 | DRG 552 ==
LOC: D.ER 02:12 → D.EDHOLD 05:11 → OBSVTIME 05:11 → D.EDHOLD 05:11 → D.MS 05:11
PROVIDERS: Emergency Medicine; Family Medicine; General Practice; Internal Medicine Hematology & Oncology; ADMIT Family Medicine; ATTEND Family Medicine
DX: S32.019A Unspecified fracture of first lumbar vertebra, initial encounter for closed fracture (principal); S22.41XA Multiple fractures of ribs, right side, initial encounter for closed fracture; S22.089A Unspecified fracture of T11-T12 vertebra, initial encounter for closed fracture; J90 Pleural effusion, not elsewhere classified; C34.90 Malignant neoplasm of unspecified part of unspecified bronchus or lung; W19.XXXA Unspecified fall, initial encounter; H40.9 Unspecified glaucoma; F41.9 Anxiety disorder, unspecified; M19.90 Unspecified osteoarthritis, unspecified site; K21.9 Gastro-esophageal reflux disease without esophagitis; D64.9 Anemia, unspecified; D75.89 Other specified diseases of blood and blood-forming organs; K59.00 Constipation, unspecified; Z72.89 Other problems related to lifestyle